=== PATIENT | male | born 1960 | race Caucasian/White ===

== ENCOUNTER 2016-11-27 16:36 | Observation (INO) | payer SELFPAY ==
[~2016-11-27] VITALS: Ht 182.9 cm; Wt 90.7 kg
[2016-11-27 18:12] LABS: Basophils # (auto) 0.1 uL; Basophils % (auto) 0.7 % (0.0-2.0); CONDITION Y; Eosinophils # (auto) 0.2 uL; Eosinophils % (auto) 2.2 % (0.0-7.0); Hematocrit 47.5 % (41.0-53.0); Hemoglobin 16.6 g/dL (13.5-17.5); Lymphocytes % (auto) 25.6 % (10.0-50.0); Mean Corpuscular Hemoglobin 33.2 pg (28.0-32.0); Mean Corpuscular Volume 94.7 fL (80.0-100.0); Mean Platelet Volume 7.9 fL (7.4-10.4); Monocytes # (auto) 0.7 uL; Monocytes % (auto) 8.6 % (0.0-12.0); Neutrophils # (auto) 4.9 uL; Neutrophils % (auto) 62.9 % (37.0-80.0); Platelet Count (auto) 293 10^3/uL (140-450); Red Cell Distribution Width 13.4 % (11.6-16.0); White Blood Cell 7.8 10^3/uL (4.4-10.8)
[2016-11-27 18:19] LABS: INR 1.02 (0.9-1.15); Partial Thromboplastin Time 26.4 sec (22.64-33.71); Prothrombin Time 11.1 sec (9.37-12.3)
[2016-11-27 18:30] LABS: Albumin 3.5 g/dL (3.4-5.0); Anion Gap 9 (5-15); Blood Urea Nitrogen 13 mg/dL (7-18); Calcium 8.5 mg/dL (8.5-10.1); Carbon Dioxide 26 mmol/L (21-32); Chloride 104 mmol/L (98-107); Glucose 107 mg/dL (74-106); Potassium 3.2 mmol/L (3.5-5.1); Sodium 139 mmol/L (136-145)
[2016-11-27 18:32] LABS: Aspartate Aminotransferase 67 U/L (15-37); BUN/Creatinine Ratio 15.1; GFR African American 118 mL/min; GFR Non-African American 97 mL/min
[2016-11-27 18:37] LABS: Alkaline Phosphatase 113 U/L (45-117); Bilirubin, Total 0.6 mg/dL (0.2-1.0); Total Protein 7.2 g/dL (6.4-8.2)
[2016-11-27 18:53] LABS: B-Type Natriuretic Peptide 35.21 pg/mL (0-100)
[2016-11-27 19:10] VITALS: BP 191/113
[2016-11-27] MEDS ORDERED: POTASSIUM CHL 20 Meq TABLET PO ONE (19:15)
[2016-11-27] MEDS ORDERED: cloNIDine HCL 0.1 MG TAB PO ONE (19:15)
[2016-11-27 19:57] LABS: Temperature: 23.1 C (20.0-25.0)
== END 2016-11-27 21:14 | disposition home or self-care (01) | DRG 305 ==
LOC: EDBD 16:36 → ER 16:42 → OVERFLOW 17:41 → ER 21:14
PROVIDERS: ADMIT Family Medicine; ATTEND Family Medicine
DX: I10 Essential (primary) hypertension (principal); R55 Syncope and collapse; R51 Headache; R79.89 Other specified abnormal findings of blood chemistry; R42 Dizziness and giddiness; E87.6 Hypokalemia; F17.210 Nicotine dependence, cigarettes, uncomplicated; G89.29 Other chronic pain; Z82.49 Family history of ischemic heart disease and other diseases of the circulatory system; Z83.3 Family history of diabetes mellitus
CPT/HCPCS: 36415; 70450; 71010; 80053; 83735; 83880; 84443; 84484; 85025; 85610; 85730; 93005; 99285; G0378

== ENCOUNTER 2024-06-23 16:12 | Inpatient (IN) | payer MEDICAID, OTHER ==
[~2024-06-23] VITALS: Ht 167.6 cm; Wt 83.3 kg
--- NOTE | 2024-06-23 16:16 | ED.PDOC ---
SOB-HPI HPI Comments HPI: Poor Historian. HPI: 63 year old male LUKE presents to the ED with chief complaint of SOB. EMS reports patient has been experiencing SOB with associated productive cough for the past month now. EMS relays patient has also been experiencing decreased urine output and abdominal pressure for the past month. EMS states patient was given a breathing treatment on route with some relief noted. Patient notes he has not seen a doctor in 8 years and had smoked twice today. Patient denies any N/V/D, dizziness, headache, chest pain, fever, or chills. Initial Vital Signs: BP: 179/98 HR: 128 RR: 68 SpO2: 95% on RA Past Medical History: HLD Past Surgical History: Denies Social History: Smokes cigarettes, drinks ETOH, denies drug use. Medications: No medications. Allergies: Bees REVIEW OF SYSTEMS: CONSTITUTIONAL: Denies acute: fever, diaphoresis, chills, HEAD: Denies acute: headache, photophobia Eyes: Denies acute: Double vision, vision loss, eye pain, eye discharge. EARS: Denies acute: tinnitus, hearing loss, ear discharge, ear pain, THROAT: Denies acute: sore throat, swelling, difficulty swallowing , pain with swallowing, change in voice. NECK: Denies acute: neck pain, neck swelling, stiff neck. HEART: Denies acute : chest pain, palpitations, LUNGS: Denies acute: wheezing, hemoptysis ABDOMEN: Denies acute: abdominal pain, Nausea, Vomiting, diarrhea, melena , hematemesis, hematochezia SKIN: Denies acute: rash, redness, lesions, itchiness. EXTREMITIES: Denies acute: calf pain, numbness, tingling, weakness, denies pain in extremity. Denies acute: Low back pain. Neuro: Denies acute: focal neurological deficit, motor or sensory focal neurological deficit, tremors, seizure like activity, confusion, dizziness, change in mental status, loss of bowel or bladder function, cauda equina like symptoms. : Denies acute: dysuria, hematuria, flank pain, PSYCH: Denies acute: hallucination, suicidal ideation, homicidal ideation. PHYSICAL EXAM: General: no acute distress, awake and alert. Head: normocephalic, atraumatic. Neck: supple, trachea is midline, no swelling. Throat: Normal phonation. Eyes:, no erythema, no purulent discharge, no proptosis, no icterus. Heart: regular tachycardia, no significant murmur appreciated. Lungs: no apparent respiratory distress, Able to speak in full sentences. No wheezing, no rhonchi, no crackles. No stridors Clear to auscultation bilaterally. Abdomen: Suprapubic tender to palpation, non distended, soft, no guarding, no rebound, + bowel sounds. Neuro: Awake, Alert, oriented to name, self, situation, follows commands GCS=15. Speech is normal. Skin: no petechia, no purpura, no cyanosis, non-pale, not jaundice. Lower extremities: --no - Pitting edema no deformity, no focal swelling, no calf TTP. Makes eye contact. moves all four extremities. Face: no apparent facial droop. Ambulating in the ED independently. ED COURSE: Time Seen by MD: 16:13 Primary Care Provider: NONE Reviewed notes: Medications, Allergies Information Source: Patient, Emergency Med Personnel Mode of Arrival: EMS Was a procedure done? Was a procedure done?: No Differential Dx Differential Diagnosis: Other (DDx include ACS, unstable angina, anxiety, PE, pneumothroax, neoplasm, cardiac ischemia, COPD, asthma, CHF, pleural effusion, tobacco abuse, pneumonia, hypoxia, hypercapnia, anemia., infection/sepsis., pulmonary edema. Asthma, Cardiac tamponade, infection.) X-Ray, Labs, Meds, VS Vital Signs Date Time Temp Pulse Resp B/P (MAP) Pulse Ox O2 Delivery O2 Flow Rate FiO2 06/23/24 20:00 18 95 Room Air* 0 21 06/23/24 19:30 113 06/23/24 18:06 117 06/23/24 16:41 18 93 Room Air* 0 21 06/23/24 16:16 119 06/23/24 16:12 100.0 119 30 179/95 (123) 93 Lab Test 06/23/24 20:19 06/23/24 18:09 06/23/24 17:17 Range/Units Troponin I High Sensitivity 23 23 23 </=54 ng/L Magnesium Level 1.7 1.6-2.6 mg/dL White Blood Count 20.4 H 4.4-10.8 10^3/uL Red Blood Count 5.02 4.5-5.90 10^6/uL Hemoglobin 15.8 13.5-17.5 g/dL Hematocrit 44.9 41.0-53.0 % Mean Corpuscular Volume 89.4 80.0-100.0 fL Mean Corpuscular Hemoglobin 31.5 28.0-32.0 pg Mean Corpuscular Hemoglobin Concent 35.3 32.0-36.0 g/dL Red Cell Distribution Width 13.6 11.8-14.3 % Platelet Count 225 140-450 10^3/uL Mean Platelet Volume 7.3 6.9-10.8 fL Neutrophils (%) (Auto) 85.6 H 37.0-80.0 % Lymphocytes (%) (Auto) 4.9 L 10.0-50.0 % Monocytes (%) (Auto) 9.3 0.0-12.0 % Eosinophils (%) (Auto) 0.0 0.0-7.0 % Basophils (%) (Auto) 0.2 0.0-2.0 % Neutrophils # (Auto) 17.5 H 1.6-8.6 10 ^3/uL Lymphocytes # (Auto) 1.0 0.4-5.4 10 ^3/uL Monocytes # (Auto) 1.9 H 0-1.3 10 ^3/uL Eosinophils # (Auto) 0 0-0.8 10 ^3/uL Basophils # (Auto) 0 0-0.2 10 ^3/uL Nucleated Red Blood Cells 0.0 % D-Dimer, Quantitative 2.00 H 0.0-0.49 mg/L FEU Sodium Level 124 L 136-145 mmol/L Potassium Level 4.2 3.5-5.1 mmol/L Chloride Level 88 L 98-107 mmol/L Carbon Dioxide Level 27 20-31 mmol/L Anion Gap 9 5-15 Blood Urea Nitrogen 11 9-23 mg/dL Creatinine 0.91 0.700-1.30 mg/dL Glomerular Filtration Rate Calc 94 >90 mL/min BUN/Creatinine Ratio 12.1 10.0-20.0 Serum Glucose 191 H 74-106 mg/dL Lactic Acid Level 1.8 0.4-2.0 mmol/L Calcium Level 9.6 8.7-10.4 mg/dL Total Bilirubin 1.8 H 0.2-1.0 mg/dL Aspartate Amino Transferase (AST) 29 13-40 U/L Alanine Aminotransferase (ALT) 16 7-40 U/L Alkaline Phosphatase 163 H 46-116 U/L B-Type Natriuretic Peptide 212.12 0-100 pg/mL Total Protein 6.9 5.7-8.2 g/dL Albumin 4.1 3.2-4.8 g/dL Current Medications Medications (Trade) Dose Ordered Sig/[place]osevelt Route Start Time Stop Time Status Last Admin Albuterol (Ventolin Medneb) 2.5 mg ONCE ONCE NEB 06/23/24 16:30 06/23/24 16:31 DC 06/23/24 16:40 Ipratropium Reynolds (Atrovent Medneb) 1 mg ONCE ONCE NEB 06/23/24 16:30 06/23/24 16:31 DC 06/23/24 16:40 Methylprednisolone Sodium Succinate (Solu Medrol) 125 mg ONCE ONCE IV 06/23/24 16:30 06/23/24 16:31 DC 06/23/24 17:28 Ceftriaxone Sodium 50 ml @ 100 mls/hr ONCE ONCE IV 06/23/24 17:30 06/23/24 17:59 DC 06/23/24 17:38 [place] [address] Ph: [phone] DIAGNOSTIC IMAGING Diagnostic Imaging Report : [id number] Signed PATIENT: PADMAJA WALKER ACCT: [id number] UNIT: [id number] : 1960 LOC: ER ROOM / BED: / AGE / SEX: 63 / M ADM STATUS: REG ER SERVICE 1619 ORDERING PHYSICIAN: ALEXA LAIRD DO PROCEDURE(s): CXRP - CHEST PORTABLE REASON: cough sob ORDER NUMBER(s): [id number], ACCESSION NUMBER(s): [id number] EXAM: XR Chest, 1 View CLINICAL INDICATION: cough sob TECHNIQUE: Frontal view of the chest. COMPARISON: None FINDINGS: LUNGS AND PLEURAL SPACES: Right basilar atelectasis or pneumonia. Hyperlucent lungs. Flattening of the diaphragm. No pneumothorax. HEART: Unremarkable. No cardiomegaly. MEDIASTINUM: Unremarkable. Normal mediastinal contour. BONES/JOINTS: Unremarkable. No acute fracture. OTHER FINDINGS: . IMPRESSION: 1. Right basilar atelectasis or pneumonia. 2. Suggestion of COPD. ATED BY: PADMAJA FRYE MD DICTATED DATE/TIME: 06/23/241648 SIGNED BY: PADMAJA FRYE MD SIGNED DATE/TIME: 06/23/241648 CC: [place] [address] Ph: [phone] DIAGNOSTIC IMAGING Diagnostic Imaging Report : [id number] Signed PATIENT: PADMAJA WALKER ACCT: [id number] UNIT: [id number] : 1960 LOC: ER ROOM / BED: / AGE / SEX: 63 / M ADM STATUS: REG ER SERVICE 18 ORDERING PHYSICIAN: ALEXA LAIRD DO PROCEDURE(s): ABPL - CT AB PEL WO CON-NO ORAL OR IV REASON: abd pain, urinary symptoms ORDER NUMBER(s): [id number], ACCESSION NUMBER(s): [id number] EXAM: CT Abdomen and Pelvis Without Intravenous Contrast CLINICAL INDICATION: abd pain, urinary symptoms TECHNIQUE: Axial computed tomography images of the abdomen and pelvis without intravenous contrast. This CT exam was performed using one or more of the following dose reduction techniques: automated exposure control, adjustment of the mA and/or kV according to patient size, and/or use of iterative reconstruction technique. CONTRAST: RADIATION DOSE: CTDIvol = 12.55 mGy, DLP = 642.39 mGy-cm COMPARISON: None FINDINGS: LUNG BASES: Nodular consolidation of the right lung base measuring up to 1.8 cm. This could be secondary to atelectasis or scarring. 3 mm ground-glass nodule of the left lung base. Partially visualized lung emphysema. Repeat CT chest in 3 months is recommended. ABDOMEN: LIVER: Large fatty liver with nodular hepatic surface could be early cirrhosis. Clinical correlation is recommended. GALLBLADDER AND BILE DUCTS: Unremarkable. No calcified stones. No ductal di lation. PANCREAS: Unremarkable. No ductal dilation. SPLEEN: Mild splenomegaly. ADRENALS: Unremarkable. No mass. KIDNEYS AND URETERS: Probable left renal cyst. No stones within either kidney. No hydronephrosis. STOMACH AND BOWEL: Colonic diverticulosis without acute diverticulitis. No obstruction. PELVIS: APPENDIX: No findings to suggest acute appendicitis. BLADDER: Bladder wall thickening which may be due to the decompressed state of the bladder or due to cystitis. No stones. REPRODUCTIVE: Unremarkable as visualized. ABDOMEN and PELVIS: INTRAPERITONEAL SPACE: Unremarkable. No free air. No significant fluid collection. BONES/JOINTS: No acute fracture. No dislocation. SOFT TISSUES: Unremarkable. VASCULATURE: Scattered calcified atherosclerotic disease of aorta. No abdominal aortic aneurysm. LYMPH NODES: Unremarkable. No enlarged lymph nodes. OTHER FINDINGS: . . IMPRESSION: 1. Nodular consolidation of the right lung base measuring up to 1.8 cm. This could be secondary to atelectasis or scarring. 3 mm ground-glass nodule of the left lung base. Partially visualized lung emphysema. Repeat CT chest in 3 months is recommended. 2. Bladder wall thickening which may be due to the decompressed state of the bladder or due to cystitis. 3. No obstructive uropathy. 4. Colonic diverticulosis without acute diverticulitis. ATED BY: PADMAJA FRYE MD DICTATED DATE/TIME: 06/23/241647 SIGNED BY: PADMAJA FRYE MD SIGNED DATE/TIME: 06/23/241647 CC: Time of 1ST Reevaluation: 17:13 Reevaluation 1ST: Unchanged Time of 2ND Reevaluation: 01:21 Reevaluation 2ND: Improved Patient Education/Counseling: Diagnosis, Treatment Family Education/Counseling: No Family Present Comments Patient presented with the above HPI.---respiratory---workup was initiated. patient was found with the above mentioned diagnosis. the following medications were ordered: please refer to order lists of meds and tests obtained by myself Dr. Laird. Patient ED course and VS have been stabilized. Patient has been reassessed in the ED and remained in a stable condition. Pertinent incidental findings were discussed with the patient and/or family. Patient/family voices understanding and is agreeable with plan. Patient has been observed in the ED adequate length of time to insure improvement/stability. Escalation of care considered: Consideration of escalation to observation or admission Patient was ADMITTED to the medicine team for further evaluation and treatment of their presentation. All the reports of any imaging studies that were ordered by myself were reviewed by myself. Departure 1 Departure Time of Disposition: 17:17 Impression: Primary Impression: COPD exacerbation Additional Impressions: Pneumonia Sinus tachycardia Leukocytosis Pulmonary nodule Disposition: ADMITTED INPATIENT Admit to: Tele Condition: Guarded Discharged With: Self Critical Care Note Critical Care Time?: Yes (45 min-critical care time only) I personally scribed for ALEXA LAIRD DO ([email or web address]) on 06/23/24 at 16:16. Electronically submitted by Asif Bond ([email or web address]). I personally scribed for ALEXA LAIRD DO ([email or web address]) on 06/23/24 at 20:29. Electronically submitted by Liat Pires ([email or web address]). ALEXA LAIRD DO Jun 23, 2024 16:16
[2024-06-23] MEDS: ALBUTEROL SULF 2.5 MG/0.5ML(0.5%) NEB SOLN NEB ONE (16:40)
[2024-06-23] MEDS: IPRATROPIUM BROM 0.5 MG/2.5ML INH SOL NEB ONE (16:40)
--- NOTE | 2024-06-23 16:50 | DVH ---
EXAM: CT Abdomen and Pelvis Without Intravenous Contrast CLINICAL INDICATION: abd pain, urinary symptoms TECHNIQUE: Axial computed tomography images of the abdomen and pelvis without intravenous contrast. This CT exam was performed using one or more of the following dose reduction techniques: automated exposure control, adjustment of the mA and/or kV according to patient size, and/or use of iterative r econstruction technique. CONTRAST: RADIATION DOSE: CTDIvol = 12.55 mGy, DLP = 642.39 mGy-cm COMPARISON: None FINDINGS: LUNG BASES: Nodular consolidation of the right lung base measuring up to 1.8 cm. This could be seco ndary to atelectasis or scarring. 3 mm ground-glass nodule of the left lung base. Partially visualize d lung emphysema. Repeat CT chest in 3 months is recommended. ABDOMEN: LIVER: Large fatty liver with nodular hepatic surface could be early cirrhosis. Clinical correlatio n is recommended. GALLBLADDER AND BILE DUCTS: Unremarkable. No calcified stones. No ductal dilation. PANCREAS: Unremarkable. No ductal dilation. SPLEEN: Mild splenomegaly. ADRENALS: Unremarkable. No mass. KIDNEYS AND URETERS: Probable left renal cyst. No stones within either kidney. No hydronephrosis. STOMACH AND BOWEL: Colonic diverticulosis without acute diverticulitis. No obstruction. PELVIS: APPENDIX: No findings to suggest acute appendicitis. BLADDER: Bladder wall thickening which may be due to the decompressed state of the bladder or due t o cystitis. No stones. REPRODUCTIVE: Unremarkable as visualized. ABDOMEN and PELVIS: INTRAPERITONEAL SPACE: Unremarkable. No free air. No significant fluid collection. BONES/JOINTS: No acute fracture. No dislocation. SOFT TISSUES: Unremarkable. VASCULATURE: Scattered calcified atherosclerotic disease of aorta. No abdominal aortic aneurysm. LYMPH NODES: Unremarkable. No enlarged lymph nodes. OTHER FINDINGS: . . IMPRESSION: 1. Nodular consolidation of the right lung base measuring up to 1.8 cm. This could be secondary to a telectasis or scarring. 3 mm ground-glass nodule of the left lung base. Partially visualized lung emp hysema. Repeat CT chest in 3 months is recommended. 2. Bladder wall thickening which may be due to the decompressed state of the bladder or due to cysti tis. 3. No obstructive uropathy. 4. Colonic diverticulosis without acute diverticulitis.
--- NOTE | 2024-06-23 16:51 | DVH ---
EXAM: XR Chest, 1 View CLINICAL INDICATION: cough sob TECHNIQUE: Frontal view of the chest. COMPARISON: None FINDINGS: LUNGS AND PLEURAL SPACES: Right basilar atelectasis or pneumonia. Hyperlucent lungs. Flattening of the diaphragm. No pneumothorax. HEART: Unremarkable. No cardiomegaly. MEDIASTINUM: Unremarkable. Normal mediastinal contour. BONES/JOINTS: Unremarkable. No acute fracture. OTHER FINDINGS: . IMPRESSION: 1. Right basilar atelectasis or pneumonia. 2. Suggestion of COPD.
[2024-06-23] MEDS: methylPREDNISolone SOD SUCC 125 MG/2 ML VL IV ONE (17:28)
[2024-06-23 17:35] LABS: Basophils # (auto) 0 10 ^3/uL (0-0.2); Basophils % (auto) 0.2 % (0.0-2.0); Eosinophils # (auto) 0 10 ^3/uL (0-0.8); Hematocrit 44.9 % (41.0-53.0); Hemoglobin 15.8 g/dL (13.5-17.5); Lymphocytes % (auto) 4.9 % (10.0-50.0); Mean Corpuscular Hemoglobin 31.5 pg (28.0-32.0); Mean Corpuscular Hgb Conc. 35.3 g/dL (32.0-36.0); Mean Corpuscular Volume 89.4 fL (80.0-100.0); Monocytes # (auto) 1.9 10 ^3/uL (0-1.3); Monocytes % (auto) 9.3 % (0.0-12.0); Neutrophils # (auto) 17.5 10 ^3/uL (1.6-8.6); Neutrophils % (auto) 85.6 % (37.0-80.0); Platelet Count (auto) 225 10^3/uL (140-450); Red Blood Cells 5.02 10^6/uL (4.5-5.90); Red Cell Distribution Width 13.6 % (11.8-14.3); White Blood Cell 20.4 10^3/uL (4.4-10.8)
[2024-06-23] MEDS: cefTRIAXone 1GM/50ML D5W 50 ML IV ONE (17:38)
[2024-06-23 17:56] LABS: Alanine Aminotransferase 16 U/L (7-40); Albumin 4.1 g/dL (3.2-4.8); Anion Gap 9 (5-15); Aspartate Aminotransferase 29 U/L (13-40); BUN/Creatinine Ratio 12.1 (10.0-20.0); Blood Urea Nitrogen 11 mg/dL (9-23); Calcium 9.6 mg/dL (8.7-10.4); Carbon Dioxide 27 mmol/L (20-31); Potassium 4.2 mmol/L (3.5-5.1)
[2024-06-23 17:57] LABS: Alkaline Phosphatase 163 U/L (46-116); Bilirubin, Total 1.8 mg/dL (0.2-1.0); Chloride 88 mmol/L (98-107); Glucose 191 mg/dL (74-106); Sodium 124 mmol/L (136-145); Total Protein 6.9 g/dL (5.7-8.2)
[2024-06-23 20:00] VITALS: RESP 18; O2SAT 95
[2024-06-23] MEDS: IOHEXOL 350 MG/ML 100ML IJ ONE (20:54)
--- NOTE | 2024-06-23 21:41 | DVH ---
Procedure: CT CT ANGIO CHEST CONTRAST Reason for study/Clinical History: sob Comparison Study: None available at time of dictation. Exam Date: 06/23/2024 08:52 PM Radiation Dose Information: CT Dose: CTDI volume is 17.33 mGy. Dose-length product is 740.45 mGy*cm Contrast: Type of contrast: Omnipaque 350 Contrast inject: 100 mL Contrast wasted:0 TECHNIQUE: After the uneventful administration of intravenous contrast intravenously, CT imaging was performed through the chest. Coronal and sagittal reformations were performed by the technologist. Sagittal and coronal MIP images were reconstructed and submitted for interpretation. FINDINGS: Lower Neck: Visualized portions of the thyroid gland are unremarkable. Aorta and Vasculature: Normal caliber of thoracic aorta. Lymph Nodes: No enlarged intrathoracic lymph nodes. Mediastinum: Heart size is normal. There is no pericardial effusion. The esophagus is unremarkable. Lungs: 3.2 cm pleural-based soft tissue nodule in the right mid lung field proximally of the level of the louise. Recommend follow-up study in 6-12 months depending on patient's risk factors. 20 mm x 9 mm noncalcified pulmonary nodule in the right costophrenic angle series 3 image 96. There is 11 mm p leural-based pulmonary nodule in the mid left chest Musculoskeletal: No acute osseous abnormality. Upper abdomen: Limited portions of the upper abdomen are unremarkable. IMPRESSION: 1. There are no filling defects in the pulmonary arteries to suggest pulmonary emboli. 2. No enlargement of the pulmonary artery to suggest pulmonary artery hypertension. 3. 2 areas of ill-defined pulmonary nodules in the right chest recommend follow-up study in 6-12 brigitte hs or according to Fleischner criteria. Fleischner Society pulmonary nodule recommendations (2017): Single solid nodule <6 mm Low-risk patients: no routine follow-up required High-risk patients: optional CT at 12 months (particularly with suspicious nodule morphology and/or upper lobe location) Solitary solid nodule 6-8 mm Low-risk patients: CT at 6-12 months, then consider CT at 18-24 months High-risk patients: CT at 6-12 months, then CT at 18-24 months Solitary solid nodule >8 mm (>250 mm3) Low-risk and high-risk patients: consider CT at 3 months, PET/CT, or tissue sampling Multiple solid nodules <6 mm Low-risk patients: no routine follow-up required High-risk patients: optional CT at 12 months Multiple solid nodules >6 mm Low-risk patients: CT at 3-6 months, then consider CT at 18-24 months High-risk patients: CT at 3-6 months, then CT at 18-24 months When multiple nodules are present, the most suspicious nodule should guide further individualized management. Solitary groundglass opacities < 6 mm require no follow-up Multiple groundglass opacities < 6 mm: CT 3-6 months. If stable consider CT at 2 , and 4 years Groundglass opacities >6 mm: follow-up in 6-12 months and then every 2 years for 5 years. Groundglass opacities greater than 6 mm with part solid component follow-up CT in 3-6 months to confirm persistence. If unchanged and solid component remains less than [address] for 5 years Multiple groundglass opacities greater than 6 mm: CT at 3-6 months. Subsequent management based on the most suspicious nodules. These recommendations do not necessarily apply to women, patients with immunosuppression or a prior history of cancer, patients with multiple nodules that are suspicious for metastasis or infection, or patients with mediastinal lymphadenopathy or pleural effusion in whom cancer is strongly suspected. All CT scans at this medical facility are performed using dose modulation techniques as appropriate t o a performed exam including the following: Automated exposure control was utilized; adjustment of th e MA and/or KV according to patient size; and use of iterative reconstruction technique. HS:Y
[2024-06-23] MEDS: SODIUM CHLOR 0.9% PF (SALINE LOCK) 10ML VIAL/SYR IV SCH (22:00)
[2024-06-23] MEDS ORDERED: ACETAMINOPHEN 325 MG TAB PO PRN (22:00)
[2024-06-23] MEDS ORDERED: MORPHINE SULFATE INJ 2 MG/ml SYRG IV PRN (22:00)
[2024-06-23] MEDS ORDERED: NITROGLYCERIN 0.4 MG SL TAB SL PRN (22:00)
[2024-06-23] MEDS: hydrALAZINE HCL 20 MG/ML VL IV ONE (22:30)
[2024-06-23] MEDS: IPRATROPIUM BROM 0.5 MG/2.5ML INH SOL NEB SCH (22:30)
[2024-06-23] MEDS: LEVALBUTEROL HCL 1.25 MG/3 ML NEB NEB SCH (23:18)
[2024-06-23 23:27] VITALS: PULSE 113; RESP 20; TEMP 100; O2SAT 93
[2024-06-23 23:34] LABS: INR 1.19 (0.9-1.15); Partial Thromboplastin Time 29.9 SEC (24.5-34.5); Prothrombin Time 12.4 sec (9.3-11.8)
[2024-06-23 23:41] LABS: Magnesium 1.8 mg/dL (1.6-2.6)
--- NOTE | 2024-06-23 23:42 | DVHHPRES ---
History of Present Illness Resident Creating Document: REINA BUCHANAN RESIDENT History of Present Illness Joseph Shahid is a 63-year-old male with a PMH of PAD, presented to the ED with the chief complaints of shortness of breaths and cough. Patient reported he has been having cough with a greenish sputum for 4-5 weeks associated with shortness of breath which is worsening with exertion. Patient denies sick contacts, recent flu, recent travel. Patient also reported decreased urine and mild abdominal pressure. On my assessment patient denies nausea, vomiting, dizziness, headache, chest pain, palpitations, and other acute associated symptoms. PMH: PAD PSH: Denies Family history: Denies Personal history: Lives alone. Smokes 1 pack per day trying to quit, 6 per day alcohol but no marijuana other drug abuse Allergies: Bee sting Review of Systems Constitutional: Yes: Weakness Eyes: No: Pain, Vision change, Conjunctivae inflammation, Eyelid inflammation, Other, Redness ENT: No: Ear pain, Ear discharge, Nose pain, Nose discharge, Nose congestion, Mouth pain, Mouth swelling, Throat pain, Throat swelling, Other Respiratory: Cough, Shortness of breath, SOB with excertion, Sputum Cardiovascular: No: Chest Pain, Palpitations, Orthopnea, Paroxysmal Noc. Dyspnea, Edema, Lt Headedness, Other Gastrointestinal: No: Nausea, Vomiting, Abdominal Pain, Diarrhea, Constipation, Melena, Hematochezia, Other Genitourinary: Dysuria Musculoskeletal: No: other, neck pain, shoulder pain, arm pain, back pain, hand pain, leg pain, foot pain Skin: No: Rash, Lesions, Jaundice, Bruising, Other Neurological: No: Weakness, Numbness, Incoordination, Change in speech, Confusion, Seizures, Other Allergies: Uncoded Allergies: BEE STING (Allergy, Severe, 12/20/15) Medications Current Medications Medications Dose Ordered Sig/[place] Route Start Time Stop Time Status Last Admin Dose Admin Sodium Chloride 10 ml Q8HR IV 06/23/24 22:00 06/23/24 22:00 10 ML Enoxaparin Sodium 40 mg DAILY SC 06/24/24 10:00 Acetaminophen 650 mg Q6HP PRN PO 06/23/24 22:00 Morphine Sulfate 2 mg Q4HPRN PRN IV 06/23/24 22:00 Nitroglycerin 0.4 mg Q5MINP PRN SL 06/23/24 22:00 Morphine Sulfate 2 mg Q30M PRN IV 06/23/24 22:00 Prednisone 40 mg DAILY PO 06/24/24 10:00 Levalbuterol HCl 1.25 mg Q6HR NEB 06/24/24 00:00 06/23/24 23:18 1.25 MG Ipratropium [place] 0.5 mg Q6HR NEB 06/23/24 22:30 06/23/24 23:18 0.5 MG Ceftriaxone Sodium 50 ml @ 100 mls/hr DAILY@09 IV 06/24/24 09:00 Azithromycin 250 ml @ 125 mls/hr DAILY IV 06/24/24 10:00 UNV Hydralazine HCl 10 mg Q6HP PRN IV 06/23/24 22:30 Sodium Chloride 1,000 ml @ 75 mls/hr [id number] IV 06/23/24 22:45 Exam Vital Signs Vital Signs Date Time Temp Pulse Resp B/P (MAP) Pulse Ox O2 Delivery O2 Flow Rate FiO2 06/23/24 19:30 113 06/23/24 16:41 18 93 Room Air* 0 21 06/23/24 16:12 100.0 179/95 (123) Exam Pt is lying on bed General Appearance: Alert, Oriented X3, Cooperative, mild distress HEENT: Atraumatic, Mucous membranes moist/pink Respiratory: Clear to auscultation, decreased breath sounds Cardiovascular: Regular rate, Normal S1, Normal S2 Abdominal: Mild suprapubic discomfort. Active bowel sounds, Soft, no distention, no tenderness Extremities: No edema, Normal pulses, No tenderness/swelling Skin: No Significant rash Neuro: Normal speech, sensorimotor deficits none Labs/Xrays Labs Test 06/23/24 22:42 06/23/24 20:19 06/23/24 17:17 Range/Units Prothrombin Time 12.4 H 9.3-11.8 sec Prothrombin Time INR 1.19 H 0.9-1.15 Activated Partial Thromboplast Time 29.9 24.5-34.5 SEC Troponin I High Sensitivity 23 </=54 ng/L White Blood Count 20.4 H 4.4-10.8 10^3/uL Red Blood Count 5.02 4.5-5.90 10^6/uL Hemoglobin 15.8 13.5-17.5 g/dL Hematocrit 44.9 41.0-53.0 % Mean Corpuscular Volume 89.4 80.0-100.0 fL Mean Corpuscular Hemoglobin 31.5 28.0-32.0 pg Mean Corpuscular Hemoglobin Concent 35.3 32.0-36.0 g/dL Red Cell Distribution Width 13.6 11.8-14.3 % Platelet Count 225 140-450 10^3/uL Mean Platelet Volume 7.3 6.9-10.8 fL Neutrophils (%) (Auto) 85.6 H 37.0-80.0 % Lymphocytes (%) (Auto) 4.9 L 10.0-50.0 % Monocytes (%) (Auto) 9.3 0.0-12.0 % Eosinophils (%) (Auto) 0.0 0.0-7.0 % Basophils (%) (Auto) 0.2 0.0-2.0 % Neutrophils # (Auto) 17.5 H 1.6-8.6 10 ^3/uL Lymphocytes # (Auto) 1.0 0.4-5.4 10 ^3/uL Monocytes # (Auto) 1.9 H 0-1.3 10 ^3/uL Eosinophils # (Auto) 0 0-0.8 10 ^3/uL Basophils # (Auto) 0 0-0.2 10 ^3/uL Nucleated Red Blood Cells 0.0 % D-Dimer, Quantitative 2.00 H 0.0-0.49 mg/L FEU Potassium Level 4.2 3.5-5.1 mmol/L Chloride Level 88 L 98-107 mmol/L Carbon Dioxide Level 27 20-31 mmol/L Anion Gap 9 5-15 Blood Urea Nitrogen 11 9-23 mg/dL Creatinine 0.91 0.700-1.30 mg/dL Glomerular Filtration Rate Calc 94 >90 mL/min BUN/Creatinine Ratio 12.1 10.0-20.0 Serum Glucose 191 H 74-106 mg/dL Calcium Level 9.6 8.7-10.4 mg/dL Total Bilirubin 1.8 H 0.2-1.0 mg/dL Aspartate Amino Transferase (AST) 29 13-40 U/L Alanine Aminotransferase (ALT) 16 7-40 U/L Alkaline Phosphatase 163 H 46-116 U/L B-Type Natriuretic Peptide 212.12 0-100 pg/mL Total Protein 6.9 5.7-8.2 g/dL Albumin 4.1 3.2-4.8 g/dL Assessment/Plan Assessment/Plan # Possible Sepsis # acute on chronic COPD exacerbation # acute bacterial G+/-PNA -1 dose Rocephin and azithromycin -currently levofloxacin -ordered pancultures -evident on CXR and CT -continuously monitor for respiratory distress -monitor lab -currently giving prednisolone 40 mg daily -breathing treatments # rule out PE -CTA chest negative # right lung nodules -evident on CT chest -outpatient follow up # possible cystitis -evident on CT and clinical findings # tobacco abuse disorder # tobacco dependence # alcohol abuse disorder -counseled regarding cessation for more than 17 minutes -consider nicotine patch # diverticulosis colon -given counseling about diet # PAD -aspirin and Lipitor GI PPX not indicated Lovenox Cardiac diet Goals of care discussed with the patient for more than 29 minutes: Full code status Case discussed with Dr. Allen, patient and nurse Plan discussed with: Patient My Orders Orders - REINA BUCHANAN RESIDENT Procedure Category Date Status Time Admit ADMIT 06/23/24 Transmitted 21:47 Allergies PRAMOD 06/23/24 In Process 21:47 Code Status CODE 06/23/24 Transmitted 21:47 Sodium Chloride Lock PHA 06/23/24 In Process (Saline Lock Ns) 22:00 Enoxaparin Sodium PHA 06/24/24 In Process (Lovenox) 10:00 Complete Blood Count LAB 06/24/24 Verified 04:00 Comprehensive LAB 06/24/24 Verified Metabolic Panel 04:00 Cardiac DIET 06/24/24 Transmitted Diet-2gna,Lofat,Lochol Breakfast Condition: Fair PRAMOD 06/23/24 In Process 21:47 Acetaminophen Tablet PHA 06/23/24 In Process (Tylenol Tablet) 22:00 Morphine Sulfate PHA 06/23/24 In Process Injection 22:00 Nitroglycerin PHA 06/23/24 In Process Sublingual (Ntrostat 22:00 Morphine Sulfate PHA 06/23/24 In Process Injection 22:00 Oxygen By Nasal RT 06/23/24 Transmitted Cannula 21:47 Stat Ekg For Chest PRAMOD 06/23/24 In Process Pain 21:47 Notify Of Changes PRAMOD 06/23/24 In Process From Base 21:47 Ammonia LAB 06/23/24 In Process 22:29 Blood Alcohol LAB 06/23/24 In Process 22:29 Drug Screen LAB 06/23/24 Logged 22:29 Covid19 Antigen Raissa LAB 06/23/24 Logged Hemoglobin A1c LAB 06/23/24 In Process 22:29 Lactic Acid W/ Reflex LAB 06/23/24 In Process Order 22:29 Magnesium LAB 06/23/24 In Process 22:29 Rapid Influenza A&B LAB 06/23/24 Logged 22:29 Thyroid Stimulating LAB 06/23/24 In Process Hormone 22:29 Urinalysis LAB 06/23/24 Logged 22:29 Prednisone Tablet PHA 06/24/24 In Process 10:00 Levalbuterol Hcl PHA 06/24/24 In Process (Xopenex Medneb) 00:00 Ipratropium Medneb PHA 06/23/24 In Process (Atrovent Medneb) 22:30 Oxygen By Nasal RT 06/23/24 Transmitted Cannula 22:29 Ceftriaxone 1gm/50ml PHA 06/24/24 In Process D5w (Rocephin) 09:00 Azithromycin 500mg/ PHA 06/24/24 Pending 250ml (Zithromax 50 10:00 Azithromycin 500mg/ PHA 06/23/24 In Process 250ml (Zithromax 50 22:30 Hydralazine Injection PHA 06/23/24 In Process (Apresoline Inject 22:30 Sodium LAB 06/23/24 In Process 22:36 Sodium Chloride 0.9% PHA 06/23/24 In Process 22:45 Bilat Lower Dvt US 06/23/24 Logged 23:26 Respiratory Culture NANO 06/23/24 Uncollected W/ Gs 23:32 Blood Culture NANO 06/23/24 Uncollected 23:32 Urine Bacterial NANO 06/23/24 Uncollected Culture 23:32 Date of Service: Jun 23, 2024 Billing Provider: MICHAEL ALLEN MD Common Visit Codes: 48120-[id number] INP/OBS CARE (HIGH) Secondary Visit Codes: 47212-[id number] CARE PLAN 30 MINUTES REINA BUCHANAN RESIDENT Jun 23, 2024 23:42 MICHAEL ALLEN MD Jun 25, 2024 08:42
[2024-06-24] VITALS (10 sets, daily range): BP systolic 120–158; BP diastolic 50–87; PULSE 79–103; RESP 16–18; TEMP 97.3–98.1; O2SAT 93–98
[2024-06-24 00:09] LABS: Blood Alcohol < 3.0 mg/dL (<10)
--- NOTE | 2024-06-24 00:25 | DVH ---
Bilateral lower extremity venous duplex Clinical History: Pain and tender Comparison: None Technique: Duplex Doppler evaluation of the deep venous systems of both lower extremities from the common femora l veins to the popliteal veins including color Doppler and spectral/pulsed waveform analysis was perf ormed. Findings: RIGHT SIDE: The common femoral vein demonstrates appropriate compressibility and waveform variability. There is compressibility/patency of the great saphenous vein at the proximal thigh. The femoral vein demonstrates appropriate compressibility and waveform variability. The deep femoral vein demonstrates appropriate compressibility and waveform variability. The popliteal vein demonstrates appropriate compressibility and waveform variability. There is normal compressibility at the tibioperoneal trunk. LEFT SIDE: The common femoral vein demonstrates appropriate compressibility and waveform variability. There is compressibility/patency of the great saphenous vein at the proximal thigh. The femoral vein demonstrates appropriate compressibility and waveform variability. The deep femoral vein demonstrates appropriate compressibility and waveform variability. The popliteal vein demonstrates appropriate compressibility and waveform variability. There is normal compressibility at the tibioperoneal trunk. Impression: No evidence of right or left femoropopliteal venous thrombosis.
[2024-06-24] MEDS: cefTRIAXone 1GM/50ML D5W 50 ML IV ONE (02:11)
[2024-06-24] MEDS: SODIUM CHLORIDE 0.9% 1,000 ML IV ONE (02:12)
[2024-06-24] MEDS: predniSONE 20 MG TAB PO ONE (02:21)
[2024-06-24] MEDS: AZITHROMYCIN 500MG/ 250ML 250 ML IV ONE (02:58)
[2024-06-24] MEDS: ASPirin 81 mg TAB PO ONE (03:04)
[2024-06-24] MEDS: SODIUM CHLORIDE 0.9% 1,000 ML IV SCH (03:05)
[2024-06-24] MEDS: ATORVASTATIN 20 MG TAB PO ONE (03:05)
[2024-06-24] MEDS ORDERED: ASPI-498 OR (05:42)
[2024-06-24] MEDS ORDERED: ACET-1304 PO (05:42)
[2024-06-24 06:12] LABS: Basophils # (auto) 0 10 ^3/uL (0-0.2); Basophils % (auto) 0.1 % (0.0-2.0); Eosinophils # (auto) 0 10 ^3/uL (0-0.8); Hemoglobin 15.1 g/dL (13.5-17.5); Lymphocytes # (auto) 0.8 10 ^3/uL (0.4-5.4); Lymphocytes % (auto) 3.9 % (10.0-50.0); Mean Corpuscular Hemoglobin 31.4 pg (28.0-32.0); Mean Corpuscular Volume 89.5 fL (80.0-100.0); Monocytes % (auto) 4.6 % (0.0-12.0); Neutrophils # (auto) 19.7 10 ^3/uL (1.6-8.6); Neutrophils % (auto) 91.4 % (37.0-80.0); Platelet Count (auto) 211 10^3/uL (140-450); Red Blood Cells 4.81 10^6/uL (4.5-5.90); Red Cell Distribution Width 13.8 % (11.8-14.3); White Blood Cell 21.5 10^3/uL (4.4-10.8)
[2024-06-24 06:23] LABS: Alanine Aminotransferase 10 U/L (7-40); Albumin 4.2 g/dL (3.2-4.8); Anion Gap 11 (5-15); Aspartate Aminotransferase 21 U/L (13-40); BUN/Creatinine Ratio 16.9 (10.0-20.0); Blood Urea Nitrogen 14 mg/dL (9-23); Calcium 9.4 mg/dL (8.7-10.4); Carbon Dioxide 22 mmol/L (20-31); LDL Cholesterol 81 mg/dL (< 100); Potassium 3.8 mmol/L (3.5-5.1); Triglycerides 76 mg/dL (< 150)
[2024-06-24 06:24] LABS: Bilirubin, Total 1.2 mg/dL (0.2-1.0); Cholesterol 128 mg/dL (< 200); Total Protein 7.2 g/dL (5.7-8.2)
[2024-06-24 06:31] LABS: Alkaline Phosphatase 157 U/L (46-116); Chloride 89 mmol/L (98-107); Glucose 218 mg/dL (74-106); HDL Cholesterol 32 mg/dL (40-59); Sodium 122 mmol/L (136-145)
--- NOTE | 2024-06-24 07:28 | ECG ---
[facility] Test Date: 2024-06-23 Test Time: 19:30:52 Pat Name: PADMAJA WALKER Department: ER Room: 0289 B Gender: M [employer]ter [employer]: : 1960 Requested By: ALEXA LAIRD Order Number: [id number] Reading MD: Asif Murillo Measurements Intervals [place] Rate: 113 P: 69 WI: 173 QRS: 59 QRSD: 81 T: 62 QT: 311 QTc: 427 Interpretive Statements Sinus tachycardia Multiple ventricular premature complexes Anteroseptal infarct, old Borderline ST depression, diffuse leads Electronically Signed On 06-26-2024 17:41:24 PST by Asif Murillo Please click the below link to view image of tracing.
--- NOTE | 2024-06-24 08:37 | ECG ---
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
--- NOTE | 2024-06-24 08:38 | ECG ---
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
[2024-06-24] MEDS ORDERED: cefTRIAXone 1GM/50ML D5W 50 ML IV SCH (09:00)
[2024-06-24] MEDS: ASPirin 81 mg TAB PO SCH (09:24)
[2024-06-24] MEDS: ENOXAPARIN SOD 40 MG/0.4 ML SYRINGE SC SCH (09:24)
[2024-06-24] MEDS: predniSONE 20 MG TAB PO SCH (09:24)
[2024-06-24] MEDS: levoFLOXacin 500MG 100 ML IV SCH (09:25)
[2024-06-24] MEDS ORDERED: AZITHROMYCIN 500MG/ 250ML 250 ML IV SCH (10:00)
--- NOTE | 2024-06-24 10:32 | DVHPNRES ---
Progress Note Date Seen: Jun 24, 2024 Resident Creating Document: MENDEZ LOPEZ RESIDENT Medical Necessity Reason Pt with a Central, PICC or Fol: No Subjective Review of Systems Joseph Shahid is a 63-year-old male with a PMH of PAD, presented to the ED with the chief complaints of shortness of breaths and cough. Patient reported he has been having cough with a greenish sputum for 4-5 weeks associated with shortness of breath which is worsening with exertion. Patient denies sick contacts, recent flu, recent travel. Patient also reported decreased urine and mild abdominal pressure. On my assessment patient denies nausea, vomiting, dizziness, headache, chest pain, palpitations, and other acute associated symptoms. Initial lab workup revealed leukocytosis WBC 20.4, hyponatremia with sodium 124, HGB A1c 6.0, CXR- 1. Right basilar atelectasis or pneumonia. Doppler study negative for DVT. CT angio negative for pulmonary embolism. 2 areas of ill-defined pulmonary nodules in the right chest recommend follow-up study in 6-12 months or according to Fleischner criteria. CT abdomen pelvis revealed-Nodular consolidation of the right lung base measuring up to 1.8 cm. This could be secondary to atelectasis or scarring. 3 mm ground-glass nodule of the left lung base. Partially visualized lung emphysema. Repeat CT chest in 3 months is recommended. 2. Bladder wall thickening which may be due to the decompressed state of the bladder or due to cystitis. 3. No obstructive uropathy. 4. Colonic diverticulosis without acute diverticulitis. PMH: PAD PSH: Denies Family history: Denies Personal history: Lives alone. Smokes 1 pack per day trying to quit, 6 per day alcohol but no marijuana other drug abuse Allergies: Bee sting Patient was seen today at the bedside Cardiovascular- deny acute chest pain or palpitation Gastrointestinal- denies any rectal bleeding, nausea or vomiting Musculoskeletal-denies acute joint swelling or tenderness or redness Neurological- denies acute dysarthria, dysphagia, change in vision Psychiatry- denies depression or SI or HI Skin- denies acute rash or purpura Patient was seen today for clinical evaluation. Labs and chart reviewed. Patient reported feeling better today. Patient with vesicular breath sounds prolonged expiration. Patient on Levophed floxacillin 750 mg IV daily. Tolerating well Objective vital signs Vital Sign Date Time Temp Pulse Resp B/P (MAP) Pulse Ox O2 Delivery O2 Flow Rate FiO2 06/24/24 08:24 98.1 94 16 153/73 (99) 97 98.1 06/24/24 08:10 Room Air* 0 21 Total Intake and Output 06/23/24 06/23/24 06/24/24 15:00 23:00 07:00 Intake Total 0 ml Balance 0 ml medications Current Medications Medications Dose Ordered Sig/[place] Route Start Time Stop Time Status Last Admin Dose Admin Sodium Chloride 10 ml Q8HR IV 06/23/24 22:00 06/24/24 06:23 10 ML Enoxaparin Sodium 40 mg DAILY SC 06/24/24 10:00 06/24/24 09:24 40 MG Acetaminophen 650 mg Q6HP PRN PO 06/23/24 22:00 Morphine Sulfate 2 mg Q4HPRN PRN IV 06/23/24 22:00 Nitroglycerin 0.4 mg Q5MINP PRN SL 06/23/24 22:00 Morphine Sulfate 2 mg Q30M PRN IV 06/23/24 22:00 Prednisone 40 mg DAILY PO 06/24/24 10:00 06/24/24 09:24 40 MG Levalbuterol HCl 1.25 mg Q6HR NEB 06/24/24 00:00 06/24/24 06:18 1.25 MG Ipratropium [place] 0.5 mg Q6HR NEB 06/23/24 22:30 06/24/24 06:18 0.5 MG Hydralazine HCl 10 mg Q6HP PRN IV 06/23/24 22:30 Sodium Chloride 1,000 ml @ 75 mls/hr [id number] IV 06/23/24 22:45 06/24/24 03:05 75 MLS/HR Levofloxacin/ Dextrose 100 ml @ 100 mls/hr DAILY IV 06/24/24 10:00 06/24/24 09:25 100 MLS/HR Aspirin 81 mg DAILY PO 06/24/24 10:00 06/24/24 09:24 81 MG Atorvastatin Calcium 40 mg HS PO 06/24/24 22:00 Examination General examination- awake, alert, oriented, conversant HEENT- PEERLA, no acute nasal discharge Cardiovascular- S1-S2 audible, rate and rhythm regular, no murmur Respiratory- wheezing+ Gastrointestinal-nontender, bowel sound+. Nondistended Musculoskeletal-no acute joint swelling or tenderness or redness# Lower extremity- no leg edema Neurological- cranial nerves intact, no acute dysarthria or dysphagia Psychiatry- denies depression or SI or HI Skin- no acute rash or purpura laboratory and microbiology Laboratory Tests 06/24/24 04:58 Test 06/24/24 04:58 Range/Units Serum Glucose 218 H 74-106 mg/dL Problem List/Assessment/Plan Problem List/Assessment/Plan Assessment Acute hypoxic respiratory failure likely due to acute exertional COPD SIRs due to pneumonia Acute hypoxic respiratory failure likely due to pneumonia Gram-positive versus Gram-negative Acute pneumonia Gram-positive versus Gram-negative Uncontrolled hypertension Peripheral arterial disease Hyponatremia likely due to hypovolemic UTI Prediabetes Hyperglycemia likely due to steroid Low TSH likely due euthyroid Plan Continue levofloxacin 750 mg IV daily Continue prednisolone 40 mg p.o. daily Continue nebulization as prescribed Continue aspirin 80 mg p.o. daily Continue atorvastatin 40 mg p.o. q.h.s. Continue medication as prescribed Pending blood culture, uterine culture Goals of care/advance care planning; FULL CODE; discussed with the patient >15 minutes PUD prophylaxis: Pantoprazole DVT prophylaxis: Lovenox Plan discussed with Dr. Cabello , nursing staff, patient Total time spent on patient evaluation, chart review, assessment and plan, discussion discussion >35 minutes Plan discussed with: Patient Plan discussed with: Patient, Other (RN) MENDEZ LOPEZ RESIDENT Jun 24, 2024 10:31
[2024-06-24 10:58] LABS: Urine Bacteria FEW /hpf (None Seen); Urine Blood TRACE /uL (Negative); Urine Clarity Turbid (Clear); Urine Color Yellow (Yellow); Urine Protein, UAD TRACE (Negative); Urine Specific Gravity 1.027 (1.001-1.035); Urine Squamous Epithelial Cell FEW /hpf (<5); Urine Urobilinogen 3 mg/dL (Negative); Urine WBC 126 /HPF (0-3)
[2024-06-24 11:25] LABS: Amphetamine Screen, Urine Pos (NEGATIVE); Barbiturate Scree,Urine Neg (NEGATIVE); Benzodiazephine Screen, Urine Neg (NEGATIVE); Cannabinoid Screen, Urine Neg (NEGATIVE); Cocaine Screen, Urine Neg (NEGATIVE); Opiate Scree,Urine Neg (NEGATIVE); Phencyclidine Screen, Urine Neg (NEGATIVE)
[2024-06-24 16:26] LABS: Anion Gap 7 (5-15); Carbon Dioxide 26 mmol/L (20-31); Potassium 3.9 mmol/L (3.5-5.1)
[2024-06-24 16:28] LABS: Calcium 9.4 mg/dL (8.7-10.4)
[2024-06-24 16:33] LABS: BUN/Creatinine Ratio 21.3 (10.0-20.0); Blood Urea Nitrogen 19 mg/dL (9-23)
[2024-06-24 16:34] LABS: Chloride 93 mmol/L (98-107); Glucose 155 mg/dL (74-106); Sodium 126 mmol/L (136-145)
[2024-06-24] MEDS: PANTOPRAZOLE 40 MG/10 ML VIAL INJ IV ONE (19:05)
[2024-06-24] MEDS: ATORVASTATIN 20 MG TAB PO SCH (21:28)
[2024-06-25] VITALS (16 sets, daily range): BP systolic 123–155; BP diastolic 67–74; PULSE 87–97; RESP 14–20; TEMP 97.8–98.6; O2SAT 91–100
[2024-06-25 02:29] LABS: COVID19 ANTIGEN SOFIA FIA NEGATIVE (NEGATIVE); Rapid Influenza A Negative (Negative); Rapid Influenza B Negative (Negative)
[2024-06-25 06:11] LABS: Basophils # (auto) 0 10 ^3/uL (0-0.2); Eosinophils # (auto) 0 10 ^3/uL (0-0.8); Hematocrit 39.4 % (41.0-53.0); Hemoglobin 13.6 g/dL (13.5-17.5); Lymphocytes # (auto) 1.5 10 ^3/uL (0.4-5.4); Mean Corpuscular Hemoglobin 31.1 pg (28.0-32.0); Mean Corpuscular Hgb Conc. 34.4 g/dL (32.0-36.0); Mean Corpuscular Volume 90.4 fL (80.0-100.0); Monocytes # (auto) 1.5 10 ^3/uL (0-1.3); Monocytes % (auto) 7.2 % (0.0-12.0); Neutrophils # (auto) 17.8 10 ^3/uL (1.6-8.6); Neutrophils % (auto) 85.8 % (37.0-80.0); Nucleated Red Blood Cells % 0.1 %; Platelet Count (auto) 227 10^3/uL (140-450); Red Blood Cells 4.36 10^6/uL (4.5-5.90); Red Cell Distribution Width 13.7 % (11.8-14.3); White Blood Cell 20.7 10^3/uL (4.4-10.8)
[2024-06-25 06:25] LABS: Alanine Aminotransferase 11 U/L (7-40); Anion Gap 9 (5-15); Calcium 9.5 mg/dL (8.7-10.4); Carbon Dioxide 24 mmol/L (20-31); Potassium 4.4 mmol/L (3.5-5.1)
[2024-06-25 06:26] LABS: BUN/Creatinine Ratio 29.9 (10.0-20.0)
[2024-06-25 06:27] LABS: Aspartate Aminotransferase 16 U/L (13-40)
[2024-06-25 06:28] LABS: Albumin 3.5 g/dL (3.2-4.8); Bilirubin, Total 0.6 mg/dL (0.2-1.0)
[2024-06-25 06:42] LABS: Blood Urea Nitrogen 29 mg/dL (9-23); Chloride 97 mmol/L (98-107); Glucose 175 mg/dL (74-106); Sodium 130 mmol/L (136-145)
[2024-06-25 06:59] LABS: Alkaline Phosphatase 122 U/L (46-116)
[2024-06-25] MEDS ORDERED: VANCOMYCIN PER PHARMACY 0 MG IV SCH (07:45)
[2024-06-25] MEDS: PANTOPRAZOLE 40 MG/10 ML VIAL INJ IV SCH (09:16)
[2024-06-25] MEDS: VANCOMYCIN 1GM/250ML KIT 250 ML IV SCH (09:23)
[2024-06-25] MEDS: levoFLOXacin 500 MG TAB PO SCH (09:23)
[2024-06-25] MEDS: MORPHINE SULFATE INJ 2 MG/ml SYRG IV PRN (09:38)
[2024-06-25] MEDS ORDERED: levoFLOXacin 500MG 100 ML IV SCH (10:00)
[2024-06-25] MEDS: hydrALAZINE HCL 20 MG/ML VL IV PRN (12:36)
[2024-06-25] MEDS: cefTRIAXone 1GM/50ML D5W 50 ML IV ONE (13:16)
[2024-06-25] MEDS: AZITHROMYCIN 500MG/ 250ML 250 ML IV ONE (13:46)
--- NOTE | 2024-06-25 18:12 | DVHPN2 ---
Progress Note Date Seen: Jun 25, 2024 Resident Creating Document: MENDEZ LOPEZ RESIDENT Medical Necessity Reason Pt with a Central, PICC or Fol: No Subjective Review of Systems Joseph Shahid is a 63-year-old male with a PMH of PAD, presented to the ED with the chief complaints of shortness of breaths and cough. Patient reported he has been having cough with a greenish sputum for 4-5 weeks associated with shortness of breath which is worsening with exertion. Patient denies sick contacts, recent flu, recent travel. Patient also reported decreased urine and mild abdominal pressure. On my assessment patient denies nausea, vomiting, dizziness, headache, chest pain, palpitations, and other acute associated symptoms. Initial lab workup revealed leukocytosis WBC 20.4, hyponatremia with sodium 124, HGB A1c 6.0, UDS positive for amphetamine. CXR- 1. Right basilar atelectasis or pneumonia. Doppler study negative for DVT. CT angio negative for pulmonary embolism. 2 areas of ill-defined pulmonary nodules in the right chest recommend follow-up study in 6-12 months or according to Fleischner criteria. CT abdomen pelvis revealed-Nodular consolidation of the right lung base measuring up to 1.8 cm. This could be secondary to atelectasis or scarring. 3 mm ground-glass nodule of the left lung base. Partially visualized lung emphysema. Repeat CT chest in 3 months is recommended. 2. Bladder wall thickening which may be due to the decompressed state of the bladder or due to cystitis. 3. No obstructive uropathy. 4. Colonic diverticulosis without acute diverticulitis. PMH: PAD PSH: Denies Family history: Denies Personal history: Lives alone. Smokes 1 pack per day trying to quit, 6 per day alcohol but no marijuana other drug abuse Allergies: Bee sting Patient was seen today at the bedside Cardiovascular- deny acute chest pain or palpitation Gastrointestinal- denies any rectal bleeding, nausea or vomiting Musculoskeletal-denies acute joint swelling or tenderness or redness Neurological- denies acute dysarthria, dysphagia, change in vision Psychiatry- denies depression or SI or HI Skin- denies acute rash or purpura Patient was seen today for clinical evaluation. Labs and chart reviewed. Patient reports doing well. Discontinued levofloxacin. Blood culture revealed Gram-positive cocci in cluster. Started vancomycin and ceftriaxone and azithromycin. UDS positive for amphetamine. Objective vital signs Vital Sign Date Time Temp Pulse Resp B/P (MAP) Pulse Ox O2 Delivery O2 Flow Rate FiO2 06/25/24 18:05 98.6 94 20 123/67 (85) 95 98.6 06/25/24 08:05 Room Air* 0 21 Total Intake and Output 06/24/24 06/24/24 06/25/24 15:00 23:00 07:00 Intake Total 100 ml 250 ml 760 ml Output Total 400 ml Balance 100 ml -150 ml 760 ml medications Current Medications Medications Dose Ordered Sig/Ro[place] Route Start Time Stop Time Status Last Admin Dose Admin Sodium Chloride 10 ml Q8HR IV 06/23/24 22:00 06/25/24 12:42 10 ML Enoxaparin Sodium 40 mg DAILY SC 06/24/24 10:00 06/25/24 09:17 40 MG Acetaminophen 650 mg Q6HP PRN PO 06/23/24 22:00 Morphine Sulfate 2 mg Q4HPRN PRN IV 06/23/24 22:00 06/25/24 09:38 2 MG Nitroglycerin 0.4 mg Q5MINP PRN SL 06/23/24 22:00 Morphine Sulfate 2 mg Q30M PRN IV 06/23/24 22:00 Prednisone 40 mg DAILY PO 06/24/24 10:00 06/25/24 09:16 40 MG Levalbuterol HCl 1.25 mg Q6HR NEB 06/24/24 00:00 06/25/24 11:15 1.25 MG Ipratropium [place] 0.5 mg Q6HR NEB 06/23/24 22:30 06/25/24 11:15 0.5 MG Hydralazine HCl 10 mg Q6HP PRN IV 06/23/24 22:30 06/25/24 12:36 10 MG Aspirin 81 mg DAILY PO 06/24/24 10:00 06/25/24 09:16 81 MG Atorvastatin Calcium 40 mg HS PO 06/24/24 22:00 06/24/24 21:28 40 MG Pantoprazole Sodium 40 mg DAILY IV 06/25/24 10:00 06/25/24 09:16 40 MG Vancomycin HCl 0 ml @ 0 mls/hr UD IV 06/25/24 07:45 Vancomycin HCl 100 ml @ 100 mls/hr Q12H IV 06/25/24 22:00 Azithromycin 250 ml @ 125 mls/hr DAILY@1100 IV 06/26/24 11:00 Ceftriaxone Sodium 50 ml @ 100 mls/hr DAILY@09 IV 06/26/24 09:00 Examination General examination- awake, alert, oriented, conversant HEENT- PEERLA, no acute nasal discharge Cardiovascular- S1-S2 audible, rate and rhythm regular, no murmur Respiratory- wheezing+ Gastrointestinal-nontender, bowel sound+. Nondistended Musculoskeletal-no acute joint swelling or tenderness or redness# Lower extremity- no leg edema Neurological- cranial nerves intact, no acute dysarthria or dysphagia Psychiatry- denies depression or SI or HI Skin- no acute rash or purpura laboratory and microbiology Laboratory Tests 06/25/24 05:03 Test 06/25/24 05:03 Range/Units Serum Glucose 175 H 74-106 mg/dL Microbiology Date/Time Source Procedure Growth Status 06/24/24 11:30 Blood Blood Culture - Preliminary Resulted 06/24/24 10:40 Voided Urine Urine Culture - Preliminary Resulted 06/24/24 10:40 Sputum Gram Stain - Final Resulted 06/24/24 10:40 Sputum Respiratory Culture - Preliminary Resulted Problem List/Assessment/Plan Problem List/Assessment/Plan Assessment Acute hypoxic respiratory failure likely due to acute exertional COPD SIRs due to pneumonia Acute hypoxic respiratory failure likely due to pneumonia Gram-positive versus Gram-negative Acute pneumonia Gram-positive versus Gram-negative Uncontrolled hypertension Peripheral arterial disease Hyponatremia likely due to hypovolemic UTI Prediabetes Substance abuse amphetamine Hyperglycemia likely due to steroid Low TSH likely due euthyroid Blood culture revealed preliminary [id number] cocci in cluster. Plan Discontinued levofloxacin 750 mg IV daily started vancomycin, Started ceftriaxone and azithromycin Continue prednisolone 40 mg p.o. daily Continue nebulization as prescribed Continue aspirin 80 mg p.o. daily Continue atorvastatin 40 mg p.o. q.h.s. Continue medication as prescribed Pending blood culture, uterine culture Goals of care/advance care planning; FULL CODE; discussed with the patient >15 minutes PUD prophylaxis: Pantoprazole DVT prophylaxis: Lovenox Plan discussed with Dr. Cabello , nursing staff, patient Total time spent on patient evaluation, chart review, assessment and plan, discussion discussion >35 minutes Plan discussed with: Patient Plan discussed with: Patient, Other (RN) My Orders My Orders Orders - BABU,MOHAMMED RESIDENT Procedure Category Date Status Time Pantoprazole PHA 06/25/24 In Process (Protonix) 10:00 Communication Order ORDERS 06/25/24 Transmitted 07:04 Vancomycin Per PHA 06/25/24 In Process Pharmacy 07:45 Vancomycin 750mg Kit PHA 06/25/24 In Process (Vancomycin Hcl) 22:00 Complete Blood Count LAB 06/26/24 Verified 04:00 Creatinine LAB 06/26/24 Verified 04:00 Vancomycin,Trough LAB 06/27/24 Verified 09:00 Vancomycin Per PRAMOD 06/25/24 In Process Pharmacy Protoc 10:02 Azithromycin 500mg/ PHA 06/26/24 In Process 250ml (Zithromax 50 11:00 Blood Culture NANO 06/25/24 In Process 12:22 Ceftriaxone 1gm/50ml PHA 06/26/24 In Process D5w (Rocephin) 09:00 MENDEZ LOPEZ RESIDENT Jun 25, 2024 18:12
--- NOTE | 2024-06-25 19:09 | DVHSR ---
APPROVED REPORT EXAM: Two-dimensional and M-mode echocardiogram with Doppler and color Doppler. Blood Pressure: 155/74 mmHg INDICATION R/O endocarditis RISK FACTORS Height: 5'6", Weight: 183 DIMENSIONS LVDd4.9 (3.8-5.7cm)LA (2D)3.8 (1.9-4.0cm)Aortic Root3.1 (2.0-3.7cm) LVDs3.3 (2.5-4.0cm)LA (MM) (1.9-4.0cm)Aortic Cusp Exc1.5 (1.5-2.0cm) EF (%) 60.0 (55-70%)Rt. Atrium3.6 (1.9-4.0cm)Asc. Aorta cm IVSd1.4 (0.7-1.1cm)RV (D)3.0 (1.8-2.4cm) PWd1.4 (0.7-1.1cm) Mitral Valve MitralMitral Stenosis E wave0.92m/sMV Mean GR.mmHg A wave1.24m/sMV Peak GR.mmHg E/A ratio0.72D MVAcm2 DECEL [id number] 1/2 Timems Aortic Valve Aortic ValveAortic Stenosis V11.24m/Jordyn Mean GR.7mmHg V21.63m/Jordyn Peak GR.11mmHg LVOT Diameter2.3 (1.8-2.4cm)Doppler AVA3.16cm2 Pulmonic Valve V20.90m/s Conclusion Technically good study sinus rhythm. Left atrial enlargement. Concentric LVH. Valves are normal. EF of 55% with normal RV function. Dopplers unremarkable. No pericardial effusion masses or vegetations.
[2024-06-25] MEDS: VANCOMYCIN 750MG KIT 100 ML IV SCH (21:28)
[2024-06-26] VITALS (18 sets, daily range): BP systolic 116–162; BP diastolic 59–99; PULSE 86–109; RESP 16–20; TEMP 97.9–98.5; O2SAT 92–99
[2024-06-26 07:14] LABS: Basophils # (auto) 0 10 ^3/uL (0-0.2); Basophils % (auto) 0.2 % (0.0-2.0); Eosinophils # (auto) 0 10 ^3/uL (0-0.8); Hematocrit 38.5 % (41.0-53.0); Hemoglobin 13.3 g/dL (13.5-17.5); Lymphocytes # (auto) 1.7 10 ^3/uL (0.4-5.4); Lymphocytes % (auto) 11.1 % (10.0-50.0); Mean Corpuscular Hemoglobin 31.2 pg (28.0-32.0); Mean Corpuscular Hgb Conc. 34.5 g/dL (32.0-36.0); Mean Corpuscular Volume 90.4 fL (80.0-100.0); Monocytes # (auto) 1.2 10 ^3/uL (0-1.3); Monocytes % (auto) 7.5 % (0.0-12.0); Neutrophils # (auto) 12.6 10 ^3/uL (1.6-8.6); Neutrophils % (auto) 81.2 % (37.0-80.0); Nucleated Red Blood Cells % 0.1 %; Platelet Count (auto) 244 10^3/uL (140-450); Red Blood Cells 4.26 10^6/uL (4.5-5.90); Red Cell Distribution Width 13.6 % (11.8-14.3); White Blood Cell 15.5 10^3/uL (4.4-10.8)
[2024-06-26] MEDS: cefTRIAXone 1GM/50ML D5W 50 ML IV SCH (09:17)
[2024-06-26] MEDS: BACLOFEN 10 MG TAB PO ONE (09:18)
[2024-06-26] MEDS: KETOROLAC TROMETH 30 MG/ML 1ML VIAL IV ONE (09:18)
[2024-06-26 10:00] LABS: Potassium 3.8 mmol/L (3.5-5.1)
[2024-06-26 10:01] LABS: Anion Gap 11 (5-15); Calcium 8.7 mg/dL (8.7-10.4); Carbon Dioxide 25 mmol/L (20-31)
[2024-06-26 10:06] LABS: Glucose 93 mg/dL (74-106)
[2024-06-26 10:07] LABS: BUN/Creatinine Ratio 25.8 (10.0-20.0)
[2024-06-26 10:11] LABS: Blood Urea Nitrogen 24 mg/dL (9-23); Chloride 97 mmol/L (98-107); Sodium 133 mmol/L (136-145)
[2024-06-26] MEDS: AZITHROMYCIN 500MG/ 250ML 250 ML IV SCH (11:45)
--- NOTE | 2024-06-26 14:33 | DVHPNRES ---
Progress Note Date Seen: Jun 26, 2024 Resident Creating Document: MENDEZ LOPEZ RESIDENT Medical Necessity Reason Pt with a Central, PICC or Fol: No Subjective Review of Systems Joseph Shahid is a 63-year-old male with a PMH of PAD, presented to the ED with the chief complaints of shortness of breaths and cough. Patient reported he has been having cough with a greenish sputum for 4-5 weeks associated with shortness of breath which is worsening with exertion. Patient denies sick contacts, recent flu, recent travel. Patient also reported decreased urine and mild abdominal pressure. On my assessment patient denies nausea, vomiting, dizziness, headache, chest pain, palpitations, and other acute associated symptoms. Initial lab workup revealed leukocytosis WBC 20.4, hyponatremia with sodium 124, HGB A1c 6.0, UDS positive for amphetamine. CXR- 1. Right basilar atelectasis or pneumonia. Doppler study negative for DVT. CT angio negative for pulmonary embolism. 2 areas of ill-defined pulmonary nodules in the right chest recommend follow-up study in 6-12 months or according to Fleischner criteria. CT abdomen pelvis revealed-Nodular consolidation of the right lung base measuring up to 1.8 cm. This could be secondary to atelectasis or scarring. 3 mm ground-glass nodule of the left lung base. Partially visualized lung emphysema. Repeat CT chest in 3 months is recommended. 2. Bladder wall thickening which may be due to the decompressed state of the bladder or due to cystitis. 3. No obstructive uropathy. 4. Colonic diverticulosis without acute diverticulitis. Echo 2D revealed LVEF 55%, left atrial enlargement. Concentric LVH. Blood culture positive for MRSA. PMH: PAD PSH: Denies Family history: Denies Personal history: Lives alone. Smokes 1 pack per day trying to quit, 6 per day alcohol but no marijuana other drug abuse Allergies: Bee sting Patient was seen today at the bedside Cardiovascular- deny acute chest pain or palpitation Gastrointestinal- denies any rectal bleeding, nausea or vomiting Musculoskeletal-denies acute joint swelling or tenderness or redness Neurological- denies acute dysarthria, dysphagia, change in vision Psychiatry- denies depression or SI or HI Skin- denies acute rash or purpura Patient was seen today for clinical evaluation. Labs and chart reviewed. Patient reported back pain today. Ordered ketorolac 30 mg IV stat and baclofen 5 mg p.o. stat. Blood culture on 06/25/2024 positive for Gram-positive cocci in clusterx2.. Patient breathing well in room air. WBC trending down 20.4>> 20.7 15.5. Previously blood culture positive for MRSA. Objective vital signs Vital Sign Date Time Temp Pulse Resp B/P (MAP) Pulse Ox O2 Delivery O2 Flow Rate FiO2 06/26/24 12:15 90 16 99 06/26/24 12:09 Room Air 0.0 06/26/24 12:09 21 06/26/24 09:00 98.0 158/81 (106) 98.0 Total Intake and Output 06/25/24 06/25/24 06/26/24 15:00 23:00 07:00 Intake Total 550 ml 950 ml 600 ml Output Total 1200 ml Balance 550 ml 950 ml -600 ml medications Current Medications Medications Dose Ordered Sig/[place] Route Start Time Stop Time Status Last Admin Dose Admin Sodium Chloride 10 ml Q8HR IV 06/23/24 22:00 06/26/24 06:00 10 ML Enoxaparin Sodium 40 mg DAILY SC 06/24/24 10:00 06/26/24 09:19 40 MG Acetaminophen 650 mg Q6HP PRN PO 06/23/24 22:00 Morphine Sulfate 2 mg Q4HPRN PRN IV 06/23/24 22:00 06/25/24 09:38 2 MG Nitroglycerin 0.4 mg Q5MINP PRN SL 06/23/24 22:00 Morphine Sulfate 2 mg Q30M PRN IV 06/23/24 22:00 Prednisone 40 mg DAILY PO 06/24/24 10:00 06/26/24 09:18 40 MG Levalbuterol HCl 1.25 mg Q6HR NEB 06/24/24 00:00 06/26/24 12:09 1.25 MG Ipratropium [place] 0.5 mg Q6HR NEB 06/23/24 22:30 06/26/24 12:09 0.5 MG Hydralazine HCl 10 mg Q6HP PRN IV 06/23/24 22:30 06/25/24 12:36 10 MG Aspirin 81 mg DAILY PO 06/24/24 10:00 06/26/24 09:18 81 MG Atorvastatin Calcium 40 mg HS PO 06/24/24 22:00 06/25/24 21:28 40 MG Pantoprazole Sodium 40 mg DAILY IV 06/25/24 10:00 06/26/24 09:17 40 MG Vancomycin HCl 0 ml @ 0 mls/hr UD IV 06/25/24 07:45 Vancomycin HCl 100 ml @ 100 mls/hr Q12H IV 06/25/24 22:00 06/26/24 10:46 100 MLS/HR Azithromycin 250 ml @ 125 mls/hr DAILY@1100 IV 06/26/24 11:00 06/26/24 11:45 125 MLS/HR Ceftriaxone Sodium 50 ml @ 100 mls/hr DAILY@09 IV 06/26/24 09:00 06/26/24 09:17 100 MLS/HR Ketorolac Tromethamine 30 mg Q6HPRN PRN IV 06/26/24 09:00 07/01/24 08:59 Examination General examination- awake, alert, oriented, conversant HEENT- PEERLA, no acute nasal discharge Cardiovascular- S1-S2 audible, rate and rhythm regular, no murmur Respiratory- wheezing+ Gastrointestinal-nontender, bowel sound+. Nondistended Musculoskeletal-no acute joint swelling or tenderness or redness# Lower extremity- no leg edema Neurological- cranial nerves intact, no acute dysarthria or dysphagia Psychiatry- denies depression or SI or HI Skin- no acute rash or purpura laboratory and microbiology Laboratory Tests 06/26/24 09:13 06/26/24 05:31 Test 06/26/24 09:13 Range/Units Serum Glucose 93 74-106 mg/dL Microbiology Date/Time Source Procedure Growth Status 06/25/24 14:05 Blood Blood Culture - Preliminary Resulted 06/24/24 10:40 Voided Urine Urine Culture - Preliminary Resulted 06/24/24 10:40 Sputum Gram Stain - Final Resulted 06/24/24 10:40 Sputum Respiratory Culture - Preliminary Resulted Problem List/Assessment/Plan Problem List/Assessment/Plan Assessment Acute hypoxic respiratory failure likely due to acute exertional COPD SIRs due to pneumonia, MRSA Blood culture positive for MRSA Acute hypoxic respiratory failure likely due to pneumonia Gram-positive versus Gram-negative Acute pneumonia Gram-positive versus Gram-negative Uncontrolled hypertension Peripheral arterial disease Hyponatremia likely due to hypovolemic UTI Prediabetes Substance abuse amphetamine Hyperglycemia likely due to steroid Low TSH likely due euthyroid Blood culture revealed preliminary [id number] cocci in cluster. Plan Discontinued levofloxacin 750 mg IV daily started vancomycin, Started ceftriaxone and azithromycin Continue prednisolone 40 mg p.o. daily Continue nebulization as prescribed Continue aspirin 80 mg p.o. daily Continue atorvastatin 40 mg p.o. q.h.s. Continue medication as prescribed Pending blood culture, uterine culture Goals of care/advance care planning; FULL CODE; discussed with the patient >15 minutes PUD prophylaxis: Pantoprazole DVT prophylaxis: Lovenox Plan discussed with Dr. Cabello , nursing staff, patient Total time spent on patient evaluation, chart review, assessment and plan, discussion discussion >35 minutes Plan discussed with: Patient Plan discussed with: Patient, Other (RN) My Orders My Orders Orders - MENDEZ LOPEZ Procedure Category Date Status Time Ketorolac Injection PHA 06/26/24 In Process (Toradol Injection) 09:00 MENDEZ LOPEZ Jun 26, 2024 14:33
[2024-06-26] MEDS: KETOROLAC TROMETH 30 MG/ML 1ML VIAL IV PRN (21:00)
[2024-06-27] VITALS (16 sets, daily range): BP systolic 127–163; BP diastolic 50–87; PULSE 73–99; RESP 16–18; TEMP 97.9–98.4; O2SAT 94–100
[2024-06-27 08:04] LABS: Basophils # (auto) 0 10 ^3/uL (0-0.2); Eosinophils # (auto) 0 10 ^3/uL (0-0.8); Eosinophils % (auto) 0.2 % (0.0-7.0); Hemoglobin 13.2 g/dL (13.5-17.5); Lymphocytes % (auto) 14.2 % (10.0-50.0); Mean Corpuscular Hemoglobin 31.5 pg (28.0-32.0); Mean Corpuscular Hgb Conc. 34.7 g/dL (32.0-36.0); Monocytes # (auto) 0.9 10 ^3/uL (0-1.3); Monocytes % (auto) 6.7 % (0.0-12.0); Neutrophils # (auto) 10.9 10 ^3/uL (1.6-8.6); Neutrophils % (auto) 78.9 % (37.0-80.0); Nucleated Red Blood Cells % 0.1 %; Platelet Count (auto) 262 10^3/uL (140-450); Red Blood Cells 4.18 10^6/uL (4.5-5.90); Red Cell Distribution Width 13.5 % (11.8-14.3); White Blood Cell 13.8 10^3/uL (4.4-10.8)
[2024-06-27 10:22] LABS: Anion Gap 13 (5-15); Carbon Dioxide 21 mmol/L (20-31); Chloride 102 mmol/L (98-107); Potassium 3.9 mmol/L (3.5-5.1); Sodium 136 mmol/L (136-145)
[2024-06-27 10:27] LABS: BUN/Creatinine Ratio 22.4 (10.0-20.0); Blood Urea Nitrogen 19 mg/dL (9-23); Glucose 103 mg/dL (74-106)
--- NOTE | 2024-06-27 15:53 | DVHPNRES ---
Progress Note Date Seen: Jun 27, 2024 Resident Creating Document: JHON SOSA RESIDENT Medical Necessity Reason Pt with a Central, PICC or Fol: No Subjective Review of Systems 06/28/2024-patient seen and examined at the bedside. He is saturating 97 on room air. Two sets of blood culture were originally positive for MRSA. Prelim repeat cultures positive for Gram-positive cocci in clusters. Echocardiogram completed 06/25 unremarkable. we would continue vancomycin and ceftriaxone. Denies fever or chills. Objective vital signs Vital Sign Date Time Temp Pulse Resp B/P (MAP) Pulse Ox O2 Delivery O2 Flow Rate FiO2 06/27/24 13:00 98.1 95 16 163/50 (87) 97 98.1 06/27/24 12:10 Room Air 2.0 06/27/24 12:10 21 Total Intake and Output 06/26/24 06/26/24 06/27/24 15:00 23:00 07:00 Intake Total 400 ml 750 ml 450 ml Output Total 1525 ml 1550 ml Balance 400 ml -775 ml -1100 ml medications Current Medications Medications Dose Ordered Sig/[place] Route Start Time Stop Time Status Last Admin Dose Admin Sodium Chloride 10 ml Q8HR IV 06/23/24 22:00 06/27/24 14:19 10 ML Enoxaparin Sodium 40 mg DAILY SC 06/24/24 10:00 06/27/24 09:34 40 MG Acetaminophen 650 mg Q6HP PRN PO 06/23/24 22:00 Morphine Sulfate 2 mg Q4HPRN PRN IV 06/23/24 22:00 06/25/24 09:38 2 MG Nitroglycerin 0.4 mg Q5MINP PRN SL 06/23/24 22:00 Morphine Sulfate 2 mg Q30M PRN IV 06/23/24 22:00 Prednisone 40 mg DAILY PO 06/24/24 10:00 06/27/24 09:34 40 MG Levalbuterol HCl 1.25 mg Q6HR NEB 06/24/24 00:00 06/27/24 12:10 1.25 MG Ipratropium [place] 0.5 mg Q6HR NEB 06/23/24 22:30 06/27/24 12:10 0.5 MG Hydralazine HCl 10 mg Q6HP PRN IV 06/23/24 22:30 06/27/24 12:39 10 MG Aspirin 81 mg DAILY PO 06/24/24 10:00 06/27/24 09:34 81 MG Atorvastatin Calcium 40 mg HS PO 06/24/24 22:00 06/26/24 20:59 40 MG Pantoprazole Sodium 40 mg DAILY IV 06/25/24 10:00 06/27/24 09:34 40 MG Vancomycin HCl 0 ml @ 0 mls/hr UD IV 06/25/24 07:45 Ceftriaxone Sodium 50 ml @ 100 mls/hr DAILY@09 IV 06/26/24 09:00 06/27/24 09:33 100 MLS/HR Ketorolac Tromethamine 30 mg Q6HPRN PRN IV 06/26/24 09:00 07/01/24 08:59 06/27/24 10:47 30 MG Vancomycin HCl 250 ml @ 200 mls/hr Q12H IV 06/27/24 22:00 Examination Patient lying in bed, in no acute distress General: Well-built, afebrile, palor, mucosae are moist Cardiovascular: Regular S1 and S2. No murmurs, gallops or rubs. No JVD elevation. No pedal edema Respiratory: Normal B/L air entry on room air. Clear lung sounds on auscultation Abdomen: Soft, nontender, nondistended, normoactive bowel sounds, no rebound tenderness, no organomegaly, no masses Genitourinary: Deferred MSK/skin: Mobilizes 4 limbs. Skin is dry and warm Neurological: No motor, no sensitive deficits, normal speech. Pupils are isocoric and reactive. Psych/Mental Status: A/Ox3 laboratory and microbiology Laboratory Tests 06/27/24 06:33 Test 06/27/24 06:33 Range/Units Serum Glucose 103 74-106 mg/dL Microbiology Date/Time Source Procedure Growth Status 06/25/24 14:05 Blood Blood Culture - Preliminary Resulted 06/24/24 10:40 Voided Urine Urine Culture - Final Methicillin Resistant S.aureus Complete 06/24/24 10:40 Sputum Gram Stain - Final Complete 06/24/24 10:40 Respiratory Culture - Final Methicillin Resistant S.aureus Complete Labs and/or images reviewed: Labs reviewed by me, Image(s) reviewed by me Problem List/Assessment/Plan Problem List/Assessment/Plan 06/28/2024-patient seen and examined at the bedside. He is saturating 97 on room air. Two sets of blood culture were originally positive for MRSA. Prelim repeat cultures positive for Gram-positive cocci in clusters. Echocardiogram completed 06/25 unremarkable. we would continue vancomycin and ceftriaxone. Assessment Acute hypoxic respiratory failure likely due to acute exertional COPD SIRs due to pneumonia, MRSA Blood culture positive for MRSA Acute hypoxic respiratory failure likely due to pneumonia Gram-positive versus Gram-negative Acute pneumonia Gram-positive versus Gram-negative Solitary pulmonary nodules Uncontrolled hypertension Peripheral arterial disease Hyponatremia likely due to hypovolemic UTI Prediabetes Substance abuse amphetamine Hyperglycemia likely due to steroid Low TSH likely due euthyroid Blood culture revealed preliminary [id number] cocci in cluster. Plan Discontinued levofloxacin 750 mg IV daily started vancomycin, Started ceftriaxone and azithromycin Continue prednisolone 40 mg p.o. daily Continue nebulization as prescribed Continue aspirin 80 mg p.o. daily Continue atorvastatin 40 mg p.o. q.h.s. Continue medication as prescribed Pending blood culture, Legionella studies Goals of care/advance care planning; FULL CODE; discussed with the patient >15 minutes PUD prophylaxis: Pantoprazole DVT prophylaxis: Lovenox Plan discussed with Dr. Cabello , nursing staff, patient Total time spent on patient evaluation, chart review, assessment and plan, discussion discussion >35 minutes Plan discussed with: Patient JHON SOSA RESIDENT Jun 27, 2024 15:53
[2024-06-27] MEDS: VANCOMYCIN 1GM/250ML KIT 250 ML IV SCH (21:22)
[2024-06-28] VITALS (11 sets, daily range): BP systolic 120–171; BP diastolic 68–73; PULSE 80–100; RESP 16–20; TEMP 97.1–98.1; O2SAT 94–100
[2024-06-28 06:28] LABS: Basophils # (auto) 0 10 ^3/uL (0-0.2); Basophils % (auto) 0.1 % (0.0-2.0); Eosinophils # (auto) 0.1 10 ^3/uL (0-0.8); Eosinophils % (auto) 0.5 % (0.0-7.0); Hematocrit 36.6 % (41.0-53.0); Hemoglobin 12.6 g/dL (13.5-17.5); Lymphocytes # (auto) 1.9 10 ^3/uL (0.4-5.4); Lymphocytes % (auto) 13.6 % (10.0-50.0); Mean Corpuscular Hemoglobin 31.4 pg (28.0-32.0); Mean Corpuscular Hgb Conc. 34.5 g/dL (32.0-36.0); Mean Corpuscular Volume 91.1 fL (80.0-100.0); Monocytes # (auto) 0.9 10 ^3/uL (0-1.3); Monocytes % (auto) 6.3 % (0.0-12.0); Neutrophils # (auto) 11.1 10 ^3/uL (1.6-8.6); Neutrophils % (auto) 79.5 % (37.0-80.0); Platelet Count (auto) 280 10^3/uL (140-450); Red Blood Cells 4.02 10^6/uL (4.5-5.90); Red Cell Distribution Width 13.4 % (11.8-14.3); White Blood Cell 13.9 10^3/uL (4.4-10.8)
[2024-06-28 07:01] LABS: Calcium 9.1 mg/dL (8.7-10.4); Chloride 101 mmol/L (98-107); Potassium 3.7 mmol/L (3.5-5.1)
[2024-06-28 07:02] LABS: Anion Gap 10 (5-15); Carbon Dioxide 24 mmol/L (20-31)
[2024-06-28 07:07] LABS: BUN/Creatinine Ratio 20.8 (10.0-20.0); Blood Urea Nitrogen 16 mg/dL (9-23)
[2024-06-28 07:08] LABS: Glucose 120 mg/dL (74-106); Sodium 135 mmol/L (136-145)
[2024-06-28] MEDS: DOXYCYCLINE 100 MG TAB/CAP PO ONE (11:00)
--- NOTE | 2024-06-28 15:28 | DVHDSRES ---
Discharge Summary Date of Admission Resident Creating Document: JHON SOSA RESIDENT Jun 23, 2024 at 21:47 Date of Discharge: Jun 28, 2024 Admitting Diagnosis SIRS likely due to pneumonia Acute hypoxic respiratory failure likely due to acute exertional COPD Labs/Diagnostic Data: Laboratory Results Test 06/28/24 05:52 06/27/24 06:33 06/25/24 05:03 06/25/24 00:45 White Blood Count 13.9 10^3/uL (4.4-10.8) Red Blood Count 4.02 10^6/uL (4.5-5.90) Hemoglobin 12.6 g/dL (13.5-17.5) Hematocrit 36.6 % (41.0-53.0) Mean Corpuscular Volume 91.1 fL (80.0-100.0) Mean Corpuscular Hemoglobin 31.4 pg (28.0-32.0) Mean Corpuscular Hemoglobin Concent 34.5 g/dL (32.0-36.0) Red Cell Distribution Width 13.4 % (11.8-14.3) Platelet Count 280 10^3/uL (140-450) Mean Platelet Volume 7.1 fL (6.9-10.8) Neutrophils (%) (Auto) 79.5 % (37.0-80.0) Lymphocytes (%) (Auto) 13.6 % (10.0-50.0) Monocytes (%) (Auto) 6.3 % (0.0-12.0) Eosinophils (%) (Auto) 0.5 % (0.0-7.0) Basophils (%) (Auto) 0.1 % (0.0-2.0) Neutrophils # (Auto) 11.1 10 ^3/uL (1.6-8.6) Lymphocytes # (Auto) 1.9 10 ^3/uL (0.4-5.4) Monocytes # (Auto) 0.9 10 ^3/uL (0-1.3) Eosinophils # (Auto) 0.1 10 ^3/uL (0-0.8) Basophils # (Auto) 0 10 ^3/uL (0-0.2) Nucleated Red Blood Cells 0.0 % Sodium Level 135 mmol/L (136-145) Potassium Level 3.7 mmol/L (3.5-5.1) Chloride Level 101 mmol/L (98-107) Carbon Dioxide Level 24 mmol/L (20-31) Anion Gap 10 (5-15) Blood Urea Nitrogen 16 mg/dL (9-23) Creatinine 0.77 mg/dL (0.700-1.30) Glomerular Filtration Rate Calc 100 mL/min (>90) BUN/Creatinine Ratio 20.8 (10.0-20.0) Serum Glucose 120 mg/dL (74-106) Calcium Level 9.1 mg/dL (8.7-10.4) Magnesium Level 2.0 mg/dL (1.6-2.6) Troponin I High Sensitivity 18 ng/L (</=54) Vancomycin Level Trough 11.0 ug/mL (5-10) Total Bilirubin 0.6 mg/dL (0.2-1.0) Aspartate Amino Transferase (AST) 16 U/L (13-40) Alanine Aminotransferase (ALT) 11 U/L (7-40) Alkaline Phosphatase 122 U/L (46-116) Total Protein 6.0 g/dL (5.7-8.2) Albumin 3.5 g/dL (3.2-4.8) Influenza Type A Antigen Negative (Negative) Influenza Type B Antigen Negative (Negative) SARS-CoV-2 Antigen (Rapid) Negative (NEGATIVE) Test 06/24/24 10:40 06/24/24 04:58 06/23/24 22:42 06/23/24 17:17 Urine Color Yellow (Yellow) Urine Clarity Turbid (Clear) Urine pH 6.0 (5.0-9.0) Urine Specific [place] 1.027 (1.001-1.035) Urine Protein Trace (Negative) Urine Ketones Negative (Negative) Urine Blood Trace /uL (Negative) Urine Nitrite Negative (Negative) Urine Bilirubin Negative (Negative) Urine Urobilinogen 3 mg/dL (Negative) Urine Leukocyte Esterase 3+ /uL (Negative) Urine RBC 13 /hpf (0 - 3) Urine Microscopic WBC 126 /HPF (0-3) Urine Squamous Epithelial Cells Few /hpf (<5) Urine Bacteria Few /hpf (None Seen) Urine Glucose Trace mg/dL (Normal) Urine Opiates Screen Neg (NEGATIVE) Urine Fentanyl Screen Neg (NEGATIVE) Urine Barbiturates Screen Neg (NEGATIVE) Urine Phencyclidine Screen Neg (NEGATIVE) Urine Amphetamines Screen Pos (NEGATIVE) Urine Benzodiazepines Screen Neg (NEGATIVE) Urine Cocaine Screen Neg (NEGATIVE) Urine Cannabinoids Screen Neg (NEGATIVE) Triglycerides Level 76 mg/dL (< 150) Cholesterol Level 128 mg/dL (< 200) LDL Cholesterol 81 mg/dL (< 100) HDL Cholesterol 32 mg/dL (40-59) Prothrombin Time 12.4 sec (9.3-11.8) Prothrombin Time INR 1.19 (0.9-1.15) Activated Partial Thromboplast Time 29.9 SEC (24.5-34.5) Hemoglobin A1c 6.0 % A1C (<5.7) Lactic Acid Level 1.6 mmol/L (0.4-2.0) Ammonia 39 umol/L (11-32) Thyroid Stimulating Hormone (TSH) 0.39 uIU/mL (0.55-4.78) Plasma/Serum Blood Alcohol < 3.0 mg/dL (<10) D-Dimer, Quantitative 2.00 mg/L FEU (0.0-0.49) B-Type Natriuretic Peptide 212.12 pg/mL (0-100) Other Laboratory Tests 06/28/24 05:52 Brief Hx & Hospital Course: Padmaja Song is a 63-year-old male with a PMH of PAD, presented to the ED with the chief complaints of shortness of breaths and cough. Patient reported he has been having cough with a greenish sputum for 4-5 weeks associated with shortness of breath which is worsening with exertion. Patient denies sick contacts, recent flu, recent travel. Patient also reported decreased urine and mild abdominal pressure. On my assessment patient denies nausea, vomiting, dizziness, headache, chest pain, palpitations, and other acute associated symptoms. Initial lab workup revealed leukocytosis WBC 20.4, hyponatremia with sodium 124, HGB A1c 6.0, UDS positive for amphetamine. CXR- 1. Right basilar atelectasis or pneumonia. Doppler study negative for DVT. CT angio negative for pulmonary embolism. 2 areas of ill-defined pulmonary nodules in the right chest recommend follow-up study in 6-12 months or according to Fleischner criteria. CT abdomen pelvis revealed-Nodular consolidation of the right lung base measuring up to 1.8 cm. This could be secondary to atelectasis or scarring. 3 mm ground-glass nodule of the left lung base. Partially visualized lung emphysema. Repeat CT chest in 3 months is recommended. 2. Bladder wall thickening which may be due to the decompressed state of the bladder or due to cystitis. 3. No obstructive uropathy. 4. Colonic diverticulosis without acute diverticulitis. Echo 2D revealed LVEF 55%, left atrial enlargement. Concentric LVH. Blood culture positive for MRSA. Hospital course-patient came to the hospital with shortness of breaths and productive cough. Patient was admitted to the hospital due to sepsis likely due to pneumonia Gram-positive versus Gram-negative and acute hypoxic respiratory failure likely due to exertional COPD. Initial lab workup revealed leukocytosis WBC 20.4, hyponatremia with sodium 124, HGB A1c 6.0, UDS positive for amphetamine. CXR- 1. Right basilar atelectasis or pneumonia. Doppler study negative for DVT. CT angio negative for pulmonary embolism. 2 areas of ill- defined pulmonary nodules in the right chest recommend follow-up study in 6-12 months or according to Fleischner criteria. CT abdomen pelvis revealed-Nodular consolidation of the right lung base measuring up to 1.8 cm. This could be secondary to atelectasis or scarring. 3 mm ground-glass nodule of the left lung base. Partially visualized lung emphysema. Repeat CT chest in 3 months is recommended. 2. Bladder wall thickening which may be due to the decompressed state of the bladder or due to cystitis. 3. No obstructive uropathy. 4. Colonic diverticulosis without acute diverticulitis. Echo 2D revealed LVEF 55%, left atrial enlargement. Concentric LVH. Blood culture positive for MRSA. Respiratory culture revealed MRSA. Uterine culture revealed MRSA. Patient was being treated with vancomycin. Revealed culture on 06/25/23 was positive for MRSA. Culture on 06/27/2024 was negative for any growth. Ordered cardiology consult for further evaluation of care for MRSA bacteremia. Patient left AMA. Patient was counseled about the consequence of leaving AMA on health. Patient's condition was undetermined on discharge. Diagnosis SIRS due to pneumonia, MRSA Acute hypoxic respiratory failure likely due to acute exertional COPD MRSA bacteremia Blood culture, respiratory culture, uterine culture positive for MRSA Acute hypoxic respiratory failure likely due to pneumonia Gram-positive versus Gram-negative Acute pneumonia Gram-positive versus Gram-negative Uncontrolled hypertension Peripheral arterial disease Hyponatremia likely due to hypovolemic Acute complicated UTI with the MRSA Prediabetes Substance abuse amphetamine Hyperglycemia likely due to steroid Low TSH likely due euthyroid Operations or Procedures [facility] [id number] [facility] [id number] Ph: [phone] DIAGNOSTIC IMAGING Diagnostic Imaging Report : [id number] Signed PATIENT: PADMAJA WALKER ACCT: [id number] UNIT: [id number] : 1960 LOC: ER ROOM / BED: / AGE / SEX: 63 / M ADM STATUS: REG ER SERVICE [id number] ORDERING PHYSICIAN: ALEXA LAIRD DO PROCEDURE(s): ABPL - CT AB PEL WO CON-NO ORAL OR IV REASON: abd pain, urinary symptoms ORDER NUMBER(s): [id number], ACCESSION NUMBER(s): [id number] EXAM: CT Abdomen and Pelvis Without Intravenous Contrast CLINICAL INDICATION: abd pain, urinary symptoms TECHNIQUE: Axial computed tomography images of the abdomen and pelvis without intravenous contrast. This CT exam was performed using one or more of the following dose reduction techniques: automated exposure control, adjustment of the mA and/or kV according to patient size, and/or use of iterative reconstruction technique. CONTRAST: RADIATION DOSE: CTDIvol = 12.55 mGy, DLP = 642.39 mGy-cm COMPARISON: None FINDINGS: LUNG BASES: Nodular consolidation of the right lung base measuring up to 1.8 cm. This could be secondary to atelectasis or scarring. 3 mm ground-glass nodule of the left lung base. Partially visualized lung emphysema. Repeat CT chest in 3 months is recommended. ABDOMEN: LIVER: Large fatty liver with nodular hepatic surface could be early cirrhosis. Clinical correlation is recommended. GALLBLADDER AND BILE DUCTS: Unremarkable. No calcified stones. No ductal dilation. PANCREAS: Unremarkable. No ductal dilation. SPLEEN: Mild splenomegaly. ADRENALS: Unremarkable. No mass. KIDNEYS AND URETERS: Probable left renal cyst. No stones within either kidney. No hydronephrosis. STOMACH AND BOWEL: Colonic diverticulosis without acute diverticulitis. No obstruction. PELVIS: APPENDIX: No findings to suggest acute appendicitis. BLADDER: Bladder wall thickening which may be due to the decompressed state of the bladder or due to cystitis. No stones. REPRODUCTIVE: Unremarkable as visualized. ABDOMEN and PELVIS: INTRAPERITONEAL SPACE: Unremarkable. No free air. No significant fluid collection. BONES/JOINTS: No acute fracture. No dislocation. SOFT TISSUES: Unremarkable. VASCULATURE: Scattered calcified atherosclerotic disease of aorta. No abdominal aortic aneurysm. LYMPH NODES: Unremarkable. No enlarged lymph nodes. OTHER FINDINGS: . . IMPRESSION: 1. Nodular consolidation of the right lung base measuring up to 1.8 cm. This could be secondary to atelectasis or scarring. 3 mm ground-glass nodule of the left lung base. Partially visualized lung emphysema. Repeat CT chest in 3 months is recommended. 2. Bladder wall thickening which may be due to the decompressed state of the bladder or due to cystitis. 3. No obstructive uropathy. 4. Colonic diverticulosis without acute diverticulitis. ATED BY: PADMAJA FRYE MD DICTATED DATE/TIME: 06/23/241647 SIGNED BY: PADMAJA FRYE MD SIGNED DATE/TIME: 06/23/241647 CC: [place] [id number] Ph: [phone] DIAGNOSTIC IMAGING Diagnostic Imaging Report : [id number] Signed PATIENT: PADMAJA WALKER ACCT: [id number] UNIT: [id number] : 1960 LOC: ER ROOM / BED: / AGE / SEX: 63 / M ADM STATUS: REG ER SERVICE 18 ORDERING PHYSICIAN: ALEXA LAIRD DO PROCEDURE(s): CXRP - CHEST PORTABLE REASON: cough sob ORDER NUMBER(s): [id number], ACCESSION NUMBER(s): [id number] EXAM: XR Chest, 1 View CLINICAL INDICATION: cough sob TECHNIQUE: Frontal view of the chest. COMPARISON: None FINDINGS: LUNGS AND PLEURAL SPACES: Right basilar atelectasis or pneumonia. Hyperlucent lungs. Flattening of the diaphragm. No pneumothorax. HEART: Unremarkable. No cardiomegaly. MEDIASTINUM: Unremarkable. Normal mediastinal contour. BONES/JOINTS: Unremarkable. No acute fracture. OTHER FINDINGS: . IMPRESSION: 1. Right basilar atelectasis or pneumonia. 2. Suggestion of COPD. ATED BY: PADMAJA FRYE MD DICTATED DATE/TIME: 06/23/241648 SIGNED BY: PADMAJA FRYE MD SIGNED DATE/TIME: 06/23/241648 CC: [place] [id number] Ph: [phone] DIAGNOSTIC IMAGING Diagnostic Imaging Report : [id number] Signed PATIENT: PADMAJA WALKER ACCT: [id number] UNIT: [id number] : 1960 LOC: ER ROOM / BED: / AGE / SEX: 63 / M ADM STATUS: REG ER SERVICE 47 ORDERING PHYSICIAN: ALEXA LAIRD DO PROCEDURE(s): CTACH - CT ANGIO CHEST CONTRAST REASON: sob ORDER NUMBER(s): [id number], ACCESSION NUMBER(s): [id number] Procedure: CT CT ANGIO CHEST CONTRAST Reason for study/Clinical History: sob Comparison Study: None available at time of dictation. Exam Date: 06/23/2024 08:52 PM Radiation Dose Information: CT Dose: CTDI volume is 17.33 mGy. Dose-length product is 740.45 mGy*cm Contrast: Type of contrast: Omnipaque 350 Contrast inject: 100 mL Contrast wasted:0 TECHNIQUE: After the uneventful administration of intravenous contrast intravenously, CT imaging was performed through the chest. Coronal and sagittal reformations were performed by the technologist. Sagittal and coronal MIP images were reconstructed and submitted for interpretation. FINDINGS: Lower Neck: Visualized portions of the thyroid gland are unremarkable. Aorta and Vasculature: Normal caliber of thoracic aorta. Lymph Nodes: No enlarged intrathoracic lymph nodes. Mediastinum: Heart size is normal. There is no pericardial effusion. The esophagus is unremarkable. Lungs: 3.2 cm pleural-based soft tissue nodule in the right mid lung field proximally of the level of the louise. Recommend follow-up study in 6-12 months depending on patient's risk factors. 20 mm x 9 mm noncalcified pulmonary nodule in the right costophrenic angle series 3 image 96. There is 11 mm pleural-based pulmonary nodule in the mid left chest Musculoskeletal: No acute osseous abnormality. Upper abdomen: Limited portions of the upper abdomen are unremarkable. IMPRESSION: 1. There are no filling defects in the pulmonary arteries to suggest pulmonary emboli. 2. No enlargement of the pulmonary artery to suggest pulmonary artery hypertension. 3. 2 areas of ill-defined pulmonary nodules in the right chest recommend follow- up study in 6-12 months or according to Fleischner criteria. Fleischner Society pulmonary nodule recommendations (2017): Single solid nodule <6 mm Low-risk patients: no routine follow-up required High-risk patients: optional CT at 12 months (particularly with suspicious nodule morphology and/or upper lobe location) Solitary solid nodule 6-8 mm Low-risk patients: CT at 6-12 months, then consider CT at 18-24 months High-risk patients: CT at 6-12 months, then CT at 18-24 months Solitary solid nodule >8 mm (>250 mm3) Low-risk and high-risk patients: consider CT at 3 months, PET/CT, or tissue sampling Multiple solid nodules <6 mm Low-risk patients: no routine follow-up required High-risk patients: optional CT at 12 months Multiple solid nodules >6 mm Low-risk patients: CT at 3-6 months, then consider CT at 18-24 months High-risk patients: CT at 3-6 months, then CT at 18-24 months When multiple nodules are present, the most suspicious nodule should guide further individualized management. Solitary groundglass opacities < 6 mm require no follow-up Multiple groundglass opacities < 6 mm: CT 3-6 months. If stable consider CT at 2 , and 4 years Groundglass opacities >6 mm: follow-up in 6-12 months and then every 2 years for 5 years. Groundglass opacities greater than 6 mm with part solid component follow-up CT in 3-6 months to confirm persistence. If unchanged and solid component remains less than [address] for 5 years Multiple groundglass opacities greater than 6 mm: CT at 3-6 months. Subsequent management based on the most suspicious nodules. These recommendations do not necessarily apply to women, patients with immunosuppression or a prior history of cancer, patients with multiple nodules that are suspicious for metastasis or infection, or patients with mediastinal lymphadenopathy or pleural effusion in whom cancer is strongly suspected. All CT scans at this medical facility are performed using dose modulation techniques as appropriate to a performed exam including the following: Automated exposure control was utilized; adjustment of the MA and/or KV according to patient size; and use of iterative reconstruction technique. HS:Y ATED BY: IVANNA SWIFT Jr., DO DICTATED DATE/TIME: 06/23/242137 SIGNED BY: IVANNA SWIFT Jr., DO SIGNED DATE/TIME: 06/23/242137 CC: [place] [id number] Ph: [phone] DIAGNOSTIC IMAGING Diagnostic Imaging Report : [id number] Signed PATIENT: PADMAJA WALKER ACCT: [id number] UNIT: [id number] : 1960 LOC: OVERFLOW ROOM / BED: [facility]-ER / A AGE / SEX: 63 / M ADM STATUS: ADM IN SERVICE 25 ORDERING PHYSICIAN: REINA BUCHANAN RESIDENT PROCEDURE(s): BLDVT - BiLat Lower DVT REASON: Pain and tender ORDER NUMBER(s): [id number], ACCESSION NUMBER(s): [id number] Bilateral lower extremity venous duplex Clinical History: Pain and tender Comparison: None Technique: Duplex Doppler evaluation of the deep venous systems of both lower extremities from the common femoral veins to the popliteal veins including color Doppler and spectral/pulsed waveform analysis was performed. Findings: RIGHT SIDE: The common femoral vein demonstrates appropriate compressibility and waveform variability. There is compressibility/patency of the great saphenous vein at the proximal thigh. The femoral vein demonstrates appropriate compressibility and waveform variability. The deep femoral vein demonstrates appropriate compressibility and waveform variability. The popliteal vein demonstrates appropriate compressibility and waveform variability. There is normal compressibility at the tibioperoneal trunk. LEFT SIDE: The common femoral vein demonstrates appropriate compressibility and waveform variability. There is compressibility/patency of the great saphenous vein at the proximal thigh. The femoral vein demonstrates appropriate compressibility and waveform variability. The deep femoral vein demonstrates appropriate compressibility and waveform variability. The popliteal vein demonstrates appropriate compressibility and waveform variability. There is normal compressibility at the tibioperoneal trunk. Impression: No evidence of right or left femoropopliteal venous thrombosis. ATED BY: JACK CANTRELL MD DICTATED DATE/TIME: 06/24/2421 SIGNED BY: JACK CANTRELL MD SIGNED DATE/TIME: 06/24/2421 CC: [place] [id number] Ph: [phone] DIAGNOSTIC IMAGING Diagnostic Imaging Report : [id number] Signed PATIENT: PADMAJA WALKER ACCT: [id number] UNIT: [id number] : 1960 LOC: [facility] ROOM / BED: [facility] B AGE / SEX: 63 / M ADM STATUS: ADM IN SERVICE [id number] ORDERING PHYSICIAN: MENDEZ LOPEZ RESIDENT PROCEDURE(s): ECIDC - ECHO 2D MODE CARDIAC DOP REASON: Rule out infective endocarditis or valvular abnormality ORDER NUMBER(s): [id number], ACCESSION NUMBER(s): [id number] APPROVED REPORT EXAM: Two-dimensional and M-mode echocardiogram with Doppler and color Doppler. Blood Pressure: 155/74 mmHg INDICATION R/O endocarditis RISK FACTORS Height: 5'6", Weight: 183 DIMENSIONS LVDd 4.9 (3.8-5.7cm) LA (2D) 3.8 (1.9-4.0cm) Aortic Root 3.1 (2.0- 3.7cm) LVDs 3.3 (2.5-4.0cm) LA (MM) (1.9-4.0cm) Aortic Cusp Exc 1.5 (1.5- 2.0cm) EF (%) 60.0 (55-70%) Rt. Atrium 3.6 (1.9-4.0cm) Asc. Aorta cm IVSd 1.4 (0.7-1.1cm) RV (D) 3.0 (1.8-2.4cm) PWd 1.4 (0.7-1.1cm) Mitral Valve Mitral Mitral Stenosis E wave 0.92m/s MV Mean GR. mmHg A wave 1.24m/s MV Peak GR. mmHg E/A ratio 0.7 2D MVA cm2 DECEL Time 219ms PRESS 1/2 Time ms Aortic Valve Aortic Valve Aortic Stenosis V1 1.24m/s AO Mean GR. 7mmHg V2 1.63m/s AO Peak GR. 11mmHg LVOT Diameter 2.3 (1.8-2.4cm) Doppler ZOYA 3.16cm2 Pulmonic Valve V2 0.90m/s Conclusion Technically good study sinus rhythm. Left atrial enlargement. Concentric LVH. Valves are normal. EF of 55% with normal RV function. Dopplers unremarkable. No pericardial effusion masses or vegetations. SIGNED BY: ALEX GALLAGHER Sr., MD SIGNED DATE/TIME: 06/25/24 8378 CC: Condition at Discharge: Undetermined Final Diagnosis/Problems List SIRS due to pneumonia, MRSA Acute hypoxic respiratory failure likely due to acute exertional COPD MRSA bacteremia Blood culture, respiratory culture, uterine culture positive for MRSA Acute hypoxic respiratory failure likely due to pneumonia Gram-positive versus Gram-negative Acute pneumonia Gram-positive versus Gram-negative Uncontrolled hypertension Peripheral arterial disease Hyponatremia likely due to hypovolemic Acute complicated UTI with the MRSA Prediabetes Substance abuse amphetamine Hyperglycemia likely due to steroid Low TSH likely due euthyroid Discharge Disposition: AMA Discharge Instruct/Medications Follow Up/Referral: Patient left AMA Discharge Statement: "Patient was advised to return to the ER or call 911 if any headaches, dizziness, shortness of breath, chest pain, abdominal pain, bleeding, fevers, or worsening of medical condition. Patient was counseled about treatment plan, medications, possible side effects, patientverbalized understanding. All questions were answered to the best of my ability. This discharge took greater then 30 minutes in planning, reviewing documentation, counseling the patient, and discussing with other team members." ASSESSMENT ASSESSMENT Assessment MENDEZ LOPEZ RESIDENT Jun 28, 2024 15:28
[2024-06-28] MEDS ORDERED: DOXYCYCLINE 100 MG TAB/CAP PO SCH (22:00)
== END 2024-06-28 14:20 | disposition left against medical advice (07) | DRG 720 ==
LOC: ER 16:12 → EDBD 16:12 → OVERFLOW 21:47 → WEST WING 06-24 05:09
PROVIDERS: ADMIT Student in an Organized Health Care Education/Training Program; ATTEND Emergency Medicine
DX: A41.02 Sepsis due to Methicillin resistant Staphylococcus aureus (principal); J96.01 Acute respiratory failure with hypoxia; J15.212 Pneumonia due to Methicillin resistant Staphylococcus aureus; J15.69 Pneumonia due to other Gram-negative bacteria; E86.1 Hypovolemia; J44.0 Chronic obstructive pulmonary disease with (acute) lower respiratory infection; E87.1 Hypo-osmolality and hyponatremia; K57.30 Diverticulosis of large intestine without perforation or abscess without bleeding; Z20.822 Contact with and (suspected) exposure to COVID-19; I10 Essential (primary) hypertension; I73.9 Peripheral vascular disease, unspecified; R73.9 Hyperglycemia, unspecified; J44.1 Chronic obstructive pulmonary disease with (acute) exacerbation; J43.9 Emphysema, unspecified; T38.0X5A Adverse effect of glucocorticoids and synthetic analogues, initial encounter; Z53.29 Procedure and treatment not carried out because of patient's decision for other reasons; N30.90 Cystitis, unspecified without hematuria; E78.5 Hyperlipidemia, unspecified; F17.210 Nicotine dependence, cigarettes, uncomplicated; F15.10 Other stimulant abuse, uncomplicated; R91.1 Solitary pulmonary nodule; R73.03 Prediabetes; R00.0 Tachycardia, unspecified; Z91.030 Bee allergy status; Z79.899 Other long term (current) drug therapy; Z79.2 Long term (current) use of antibiotics; Z79.1 Long term (current) use of non-steroidal anti-inflammatories (NSAID); Z79.82 Long term (current) use of aspirin; Y92.89 Other specified places as the place of occurrence of the external cause
CPT/HCPCS: 36415; 71045; 71275; 74176; 80048; 80053; 80061; 80202; 80307; 80320; 81001; 82140; 82565; 83036; 83605; 83735; 83880; 84295; 84443; 84484; 85025; 85379; 85610; 85730; 87040; 87070; 87077; 87086; 87088; 87186; 87205; 87278; 87426; 87804; 93005; 93306; 93970; 94640; 96365; 96375; 99291; G0378; J1885; J1956; J2470